=== PATIENT | male | born 1950 | race Caucasian/White ===

== ENCOUNTER 2022-01-16 21:55 | Observation (INO) | payer MEDICARE, OTHER ==
--- NOTE | 2022-01-17 00:18 | ED ---
Altered Mental Status HPI - General Chief Complaint: Altered Mental Status Stated Complaint: Altered Mental Status Time Seen by Provider: 01/16/22 22:05 Source: patient, EMS Mode of arrival: EMS Limitations: no limitations - History of Present Illness Initial Comments: This patient is a 71-year-old man sent [facility] from [facility] to have evaluation for altered mental status. The [facility] notes state that the patient was not able to answer simple questions. When I interview the patient, he does not have any complaints. The patient believes that they tried to wake him up and he wasn't able to answer appropriately. He also states that it is possible he may have had a seizure. He had seizure disorder but states that since he moved to this area from the [facility] he has not had his seizure medication and they do not seem to be addressing the issue rapidly at the [facility]. The patient is denying pains. He denies dyspnea. He states that he would like just like to go back to the home and rest. MD Complaint: altered mental status -: minutes(s) Associated Symptoms: denies other symptoms - Related Data Home Medications Medication Instructions Recorded Confirmed Ammonium Lactate Lotion 1 applic TOPICAL Q12H 01/16/22 01/16/22 [Lac-Hydrin 12% Lotion] Apixaban [Eliquis] 2.5 mg PO BID@0900,209901/16/22 01/16/22 Ascorbic Acid [Vitamin C] 500 mg PO HS@209901/16/22 01/16/22 Cholecalciferol [Vitamin D3 (25 50 mcg PO DAILY@0900 01/16/22 01/16/22 Mcg = 1000 Iu)] Cyanocobalamin [Vitamin B-12 1,000 mcg SQ Q30D 01/16/22 01/16/22 Injection] Lacosamide [Vimpat] 200 mg PO BID@0900,209901/16/22 01/16/22 Metoprolol Succinate (ER) [Toprol 50 mg PO DAILY@0900 01/16/22 01/16/22 Xl] Pravastatin Sodium 80 mg PO HS@209901/16/22 01/16/22 Topiramate [Topamax] 100 mg PO BID@0900,209901/16/22 01/16/22 metFORMIN HCL 500 mg PO BID@0900,1700 01/16/22 01/16/22 Allergies Allergy/AdvReac Type Severity Reaction Status Date / Time No Known Allergies Allergy Verified 01/16/22 23:47 Review of Systems ROS Statement: Those systems with pertinent positive or pertinent negative responses have been documented in the HPI. ROS Other: All systems not noted in ROS Statement are negative. Constitutional: Denies: fever Respiratory: Denies: cough, dyspnea Cardiovascular: Denies: chest pain, orthopnea Gastrointestinal: Denies: abdominal pain, vomiting Musculoskeletal: Denies: back pain Skin: Denies: rash Neurological: Denies: headache Past Medical History Past Medical History: Hypertension History of Any Multi-Drug Resistant Organisms: None Reported Past Surgical History: Unable to Obtain Past Psychological History: No Psychological Hx Reported Smoking Status: Former smoker Past Alcohol Use History: None Reported Past Drug Use History: None Reported General Exam Limitations: no limitations General appearance: alert, in no apparent distress Head exam: Present: atraumatic, normocephalic Eye exam: Present: normal appearance. Absent: scleral icterus, conjunctival injection Neck exam: Present: normal inspection, full ROM Respiratory exam: Present: normal lung sounds bilaterally. Absent: respiratory distress, wheezes, rales, rhonchi, stridor Cardiovascular Exam: Present: regular rate, normal rhythm, normal heart sounds. Absent: systolic murmur, diastolic murmur, rubs, gallop GI/Abdominal exam: Present: soft. Absent: distended, tenderness, guarding, rebound, rigid, mass Extremities exam: Present: normal inspection, normal capillary refill Neurological exam: Present: alert, oriented X3. Absent: motor sensory deficit Skin exam: Present: warm, dry, intact, normal color. Absent: rash Course Vital Signs 01/16/22 01/17/22 01/17/22 21:56 00:56 06:59 Temperature 97.8 F Pulse Rate 51 L 61 57 L Respiratory 18 18 14 Rate Blood Pressure 138/57 138/72 151/77 O2 Sat by Pulse 95 96 99 Oximetry Medical Decision Making - Lab Data Result diagrams: 01/17/22 00:56 01/17/22 00:56 Lab Results 01/17/22 01/17/22 01/17/22 Range/Units 00:56 00:56 00:56 WBC 12.5 H (3.8-10.6) k/uL RBC 4.92 (4.30-5.90) m/uL Hgb 14.7 (13.0-17.5) gm/dL Hct 45.7 (39.0-53.0) % MCV 92.9 (80.0-100.0) fL MCH 29.9 (25.0-35.0) pg MCHC 32.2 (31.0-37.0) g/dL RDW 14.5 (11.5-15.5) % Plt Count 264 (150-450) k/uL MPV 8.3 Neutrophils % 71 % Lymphocytes % 18 % Monocytes % 5 % Eosinophils % 4 % Basophils % 1 % Neutrophils # 8.9 H (1.3-7.7) k/uL Lymphocytes # 2.3 (1.0-4.8) k/uL Monocytes # 0.6 (0-1.0) k/uL Eosinophils # 0.5 (0-0.7) k/uL Basophils # 0.1 (0-0.2) k/uL Sodium 138 (137-145) mmol/L Potassium 4.9 (3.5-5.1) mmol/L Chloride 108 H (98-107) mmol/L Carbon Dioxide 21 L (22-30) mmol/L Anion Gap 9 mmol/L BUN 24 H (9-20) mg/dL Creatinine 0.96 (0.66-1.25) mg/dL Est GFR (CKD-EPI)AfAm >90 (>60 ml/min/1.73 sqM) Est GFR (CKD-EPI)NonAf 80 (>60 ml/min/1.73 sqM) Glucose 239 H (74-99) mg/dL Calcium 9.4 (8.4-10.2) mg/dL Total Bilirubin 0.3 (0.2-1.3) mg/dL AST 40 (17-59) U/L ALT 35 (4-49) U/L Alkaline Phosphatase 99 (38-126) U/L Ammonia (<30) umol/L Troponin I 1.030 H* (0.000-0.034) ng/mL Total Protein 7.7 (6.3-8.2) g/dL Albumin 4.0 (3.5-5.0) g/dL Urine Color Urine Appearance (Clear) Urine pH (5.0-8.0) Ur Specific [place] (1.001-1.035) Urine Protein (Negative) Urine Glucose (UA) (Negative) Urine Ketones (Negative) Urine Blood (Negative) Urine Nitrite (Negative) Urine Bilirubin (Negative) Urine Urobilinogen (<2.0) mg/dL Ur Leukocyte Esterase (Negative) Urine RBC (0-5) /hpf Urine WBC (0-5) /hpf Ur Squamous Epith Cells (0-4) /hpf Urine Bacteria (None) /hpf Urine Mucus (None) /hpf Urine Opiates Screen (NotDetected) Ur Oxycodone Screen (NotDetected) Urine Methadone Screen (NotDetected) Ur Propoxyphene Screen (NotDetected) Ur Barbiturates Screen (NotDetected) U Tricyclic Antidepress (NotDetected) Ur Phencyclidine Scrn (NotDetected) Ur Amphetamines Screen (NotDetected) U Methamphetamines Scrn (NotDetected) U Benzodiazepines Scrn (NotDetected) Urine Cocaine Screen (NotDetected) U Marijuana (THC) Screen (NotDetected) 01/17/22 01/17/22 01/17/22 Range/Units 00:56 02:12 02:12 WBC (3.8-10.6) k/uL RBC (4.30-5.90) m/uL Hgb (13.0-17.5) gm/dL Hct (39.0-53.0) % MCV (80.0-100.0) fL MCH (25.0-35.0) pg MCHC (31.0-37.0) g/dL RDW (11.5-15.5) % Plt Count (150-450) k/uL MPV Neutrophils % % Lymphocytes % % Monocytes % % Eosinophils % % Basophils % % Neutrophils # (1.3-7.7) k/uL Lymphocytes # (1.0-4.8) k/uL Monocytes # (0-1.0) k/uL Eosinophils # (0-0.7) k/uL Basophils # (0-0.2) k/uL Sodium (137-145) mmol/L Potassium (3.5-5.1) mmol/L Chloride (98-107) mmol/L Carbon Dioxide (22-30) mmol/L Anion Gap mmol/L BUN (9-20) mg/dL Creatinine (0.66-1.25) mg/dL Est GFR (CKD-EPI)AfAm (>60 ml/min/1.73 sqM) Est GFR (CKD-EPI)NonAf (>60 ml/min/1.73 sqM) Glucose (74-99) mg/dL Calcium (8.4-10.2) mg/dL Total Bilirubin (0.2-1.3) mg/dL AST (17-59) U/L ALT (4-49) U/L Alkaline Phosphatase (38-126) U/L Ammonia <9 (<30) umol/L Troponin I (0.000-0.034) ng/mL Total Protein (6.3-8.2) g/dL Albumin (3.5-5.0) g/dL Urine Color Yellow Urine Appearance Cloudy (Clear) Urine pH 6.5 (5.0-8.0) Ur Specific [place] 1.018 (1.001-1.035) Urine Protein Negative (Negative) Urine Glucose (UA) Negative (Negative) Urine Ketones Negative (Negative) Urine Blood Negative (Negative) Urine Nitrite Negative (Negative) Urine Bilirubin Negative (Negative) Urine Urobilinogen 2.0 (<2.0) mg/dL Ur Leukocyte Esterase Small H (Negative) Urine RBC 1 (0-5) /hpf Urine WBC 2 (0-5) /hpf Ur Squamous Epith Cells <1 (0-4) /hpf Urine Bacteria Rare H (None) /hpf Urine Mucus Rare H (None) /hpf Urine Opiates Screen Not Detected (NotDetected) Ur Oxycodone Screen Not Detected (NotDetected) Urine Methadone Screen Not Detected (NotDetected) Ur Propoxyphene Screen Not Detected (NotDetected) Ur Barbiturates Screen Not Detected (NotDetected) U Tricyclic Antidepress Not Detected (NotDetected) Ur Phencyclidine Scrn Not Detected (NotDetected) Ur Amphetamines Screen Not Detected (NotDetected) U Methamphetamines Scrn Not Detected (NotDetected) U Benzodiazepines Scrn Not Detected (NotDetected) Urine Cocaine Screen Not Detected (NotDetected) U Marijuana (THC) Screen Not Detected (NotDetected) 01/17/22 Range/Units 04:01 WBC (3.8-10.6) k/uL RBC (4.30-5.90) m/uL Hgb (13.0-17.5) gm/dL Hct (39.0-53.0) % MCV (80.0-100.0) fL MCH (25.0-35.0) pg MCHC (31.0-37.0) g/dL RDW (11.5-15.5) % Plt Count (150-450) k/uL MPV Neutrophils % % Lymphocytes % % Monocytes % % Eosinophils % % Basophils % % Neutrophils # (1.3-7.7) k/uL Lymphocytes # (1.0-4.8) k/uL Monocytes # (0-1.0) k/uL Eosinophils # (0-0.7) k/uL Basophils # (0-0.2) k/uL Sodium (137-145) mmol/L Potassium (3.5-5.1) mmol/L Chloride (98-107) mmol/L Carbon Dioxide (22-30) mmol/L Anion Gap mmol/L BUN (9-20) mg/dL Creatinine (0.66-1.25) mg/dL Est GFR (CKD-EPI)AfAm (>60 ml/min/1.73 sqM) Est GFR (CKD-EPI)NonAf (>60 ml/min/1.73 sqM) Glucose (74-99) mg/dL Calcium (8.4-10.2) mg/dL Total Bilirubin (0.2-1.3) mg/dL AST (17-59) U/L ALT (4-49) U/L Alkaline Phosphatase (38-126) U/L Ammonia (<30) umol/L Troponin I 0.842 H* (0.000-0.034) ng/mL Total Protein (6.3-8.2) g/dL Albumin (3.5-5.0) g/dL Urine Color Urine Appearance (Clear) Urine pH (5.0-8.0) Ur Specific [place] (1.001-1.035) Urine Protein (Negative) Urine Glucose (UA) (Negative) Urine Ketones (Negative) Urine Blood (Negative) Urine Nitrite (Negative) Urine Bilirubin (Negative) Urine Urobilinogen (<2.0) mg/dL Ur Leukocyte Esterase (Negative) Urine RBC (0-5) /hpf Urine WBC (0-5) /hpf Ur Squamous Epith Cells (0-4) /hpf Urine Bacteria (None) /hpf Urine Mucus (None) /hpf Urine Opiates Screen (NotDetected) Ur Oxycodone Screen (NotDetected) Urine Methadone Screen (NotDetected) Ur Propoxyphene Screen (NotDetected) Ur Barbiturates Screen (NotDetected) U Tricyclic Antidepress (NotDetected) Ur Phencyclidine Scrn (NotDetected) Ur Amphetamines Screen (NotDetected) U Methamphetamines Scrn (NotDetected) U Benzodiazepines Scrn (NotDetected) Urine Cocaine Screen (NotDetected) U Marijuana (THC) Screen (NotDetected) Disposition Clinical Impression: Altered mental status, Elevated troponin Disposition: ADMITTED IP TO THIS [facility] Condition: Good Is patient prescribed a controlled substance at d/c from ED?: No
--- NOTE | 2022-01-17 00:20 | XR ---
EXAMINATION TYPE: XR chest 1V portable DATE OF EXAM: 01/17/2022 COMPARISON: NONE HISTORY: Altered mental status TECHNIQUE: Single view FINDINGS: There are sternal wires. There is left axillary pacemaker. There is mild coarsening of the left lung markings. No obvious heart failure. No pleural effusion. IMPRESSION: There is some mild coarsening of the left side pulmonary interstitial markings. No heart failure or pulmonary consolidation.
[2022-01-17 01:15] LABS: Basophils # (A) 0.1 k/uL (0-0.2); Basophils % (A) 1 %; Eosinophils # (A) 0.5 k/uL (0-0.7); Eosinophils % (A) 4 %; HCT 45.7 % (39.0-53.0); HGB 14.7 gm/dL (13.0-17.5); Lymphocytes # (A) 2.3 k/uL (1.0-4.8); Lymphocytes % (A) 18 %; MCH 29.9 pg (25.0-35.0); MCHC 32.2 g/dL (31.0-37.0); MCV 92.9 fL (80.0-100.0); Mean Platelet Volume 8.3; Monocytes # (A) 0.6 k/uL (0-1.0); Monocytes % (A) 5 %; Neutrophils # (A) 8.9 k/uL (1.3-7.7); Neutrophils % (A) 71 %; Platelet Count 264 k/uL (150-450); RBC 4.92 m/uL (4.30-5.90); RDW 14.5 % (11.5-15.5); WBC 12.5 k/uL (3.8-10.6)
[2022-01-17 01:39] LABS: ALT 35 U/L (4-49); African American GFR (CKD) >90 (>60 ml/min/1.73 sqM); Anion Gap 9 mmol/L; Blood Urea Nitrogen 24 mg/dL (9-20); Calcium 9.4 mg/dL (8.4-10.2); Carbon Dioxide 21 mmol/L (22-30); Chloride 108 mmol/L (98-107); Glucose 239 mg/dL (74-99); Non-African American GFR(CKD) 80 (>60 ml/min/1.73 sqM); Sodium 138 mmol/L (137-145); Total Bilirubin 0.3 mg/dL (0.2-1.3); Total Protein 7.7 g/dL (6.3-8.2)
[2022-01-17 01:59] LABS: AST 40 U/L (17-59); Alkaline Phosphatase 99 U/L (38-126); Potassium 4.9 mmol/L (3.5-5.1)
[2022-01-17 02:43] LABS: Amphetamine Screen,Urine Not Detected (NotDetected); Barbiturate Screen,Urine Not Detected (NotDetected); Benzodiazepines Screen,Urine Not Detected (NotDetected); Cocaine Screen,Urine Not Detected (NotDetected); Methadone Screen, Urine Not Detected (NotDetected); Opiate Screen,Urine Not Detected (NotDetected); Oxycodone Screen, Urine Not Detected (NotDetected); Phencyclidine Screen,Urine Not Detected (NotDetected); Tricyclic Antidepressant,Urine Not Detected (NotDetected); Urn Cannabinoid Scrn Not Detected (NotDetected)
[2022-01-17 05:13] LABS: Appearance,Urine Cloudy (Clear); Bacteria,Urine Rare /hpf; Bilirubin,Urine Negative (Negative); Blood,Urine Negative (Negative); Color,Urine Yellow; Glucose,Urine (UA) Negative (Negative); Ketones,Urine Negative (Negative); Leukocyte Esterase,Urine Small (Negative); Mucus,Urine Rare /hpf; Nitrite,Urine Negative (Negative); PH, Urine 6.5 (5.0-8.0); Protein,Urine Negative (Negative); RBC,Urine 1 /hpf (0-5); Specific Gravity,Urine 1.018 (1.001-1.035); Squamous Epithelial Cell,Urine <1 /hpf (0-4); WBC,Urine 2 /hpf (0-5)
[2022-01-17] MEDS ORDERED: NITROGLYCERIN SL TABS 0.4 MG TAB SUBLINGUAL PRN (06:35)
[2022-01-17] MEDS ORDERED: metFORMIN 500 MG TAB PO SCH (09:00)
[2022-01-17 11:47] LABS: Glucose,Whole Blood 284 mg/dL (70-110)
[2022-01-17] MEDS: APIXABAN 2.5 MG TABLET PO SCH ×2 (12:31→21:11)
[2022-01-17] MEDS: CHOLECALCIFEROL 25 MCG (1000 IU) TABLET PO SCH (12:31)
[2022-01-17] MEDS: LACOSAMIDE 50 MG TABLET PO SCH ×2 (12:31→21:10)
[2022-01-17] MEDS: METOPROLOL SUCCINATE (ER) 50 MG TAB.ER.24H PO SCH (12:32)
[2022-01-17] MEDS: TOPIRAMATE 100 MG TAB PO SCH ×2 (12:32→21:11)
[2022-01-17 16:50] LABS: Glucose,Whole Blood 188 mg/dL (70-110)
--- NOTE | 2022-01-17 17:38 | CONS ---
BENNY Bullard is a 71-year-old gentleman who is currently a resident of a alf, brought into hospital primarily because he was mildly confused. He had troponins done that came back elevated, for which he is admitted to hospital and Cardiology had been consulted. The patient does not have chest pain or difficulty in breathing and does not really have any other symptoms. His EKG shows paced rhythm with left bundle branch block. He still appears mildly confused. PAST MEDICAL HISTORY: Significant for atrial fibrillation, dyslipidemia, hypertension, [id number] diabetes and prior history of pacemaker. MEDICATIONS: Medications include metformin, Eliquis, Toprol-XL, vitamin C and ammonium lactate. ALLERGIES: NO KNOWN DRUG ALLERGIES. Family history, social history, review of systems I am unable to obtain from the patient, who is still pleasantly confused. PHYSICAL EXAMINATION: On exam, heart rate is 50 beats per minute. Blood pressure is 157/70, respiratory rate 18, O2 saturation is 99% on room air. There is no jugular venous distention. Carotid upstroke is diminished. There is no bruit. Chest exam reveals good air entry bilaterally. Heart exam reveals first and second heart sounds and a systolic murmur at the apex. Abdomen is soft. Examination of extremities reveals mild edema. Peripheral pulses are felt. ASSESSMENT: Elevated troponin of unclear clinical significance in a patient who does not have chest pain and does not seem to be in heart failure. I will obtain a 2D echo to assess his LV function and wall motion, treat him with continued medical therapy, and when his symptoms improve, if necessary consider a stress test. We certainly need to review his outpatient records, as I am not able to get much information from him. MMODL / IJN: [id number] /
[2022-01-17] MEDS: INSULIN ASPART (NovoLOG) 100 UNIT/ML VIAL SQ SCH ×2 (18:37→21:12)
[2022-01-17 20:30] LABS: Glucose,Whole Blood 160 mg/dL (70-110)
[2022-01-17] MEDS: PRAVASTATIN SODIUM 80 MG TAB PO SCH (21:10)
[2022-01-17] MEDS: ASCORBIC ACID 500 MG TAB PO SCH (21:11)
--- NOTE | 2022-01-17 21:27 | P.HPIM ---
History of Present Illness H&P Date: 01/17/22 Chief Complaint: Altered mental status. 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 According to the nursing staff patient was not able to answer simple questions. Patient was transferred to ER and also suspected having a seizure. No witnessed seizure was noted. Currently patient is awake alert oriented x3 and is able to answer appro priately. Patient states that he moved to this area from [place], from [place]. Otherwise denied any chest pain or shortness of breath. No nausea vomiting abdomen pain or diarrhea. Denied any recent illnesses. No fever no chills. Denied any cough or sputum production. No abdominal pain. No dysuria or hematuria. Chest x-ray showed there is some mild coarsening of the left side pulmonary interstitial markings. No heart failure or pulmonary consolidation noted. EKG showed ventricular paced rhythm. Laboratory data showed WBC 12.4 hemoglobin 14.7 platelets 264 Sodium 138 potassium 4.9 chloride 108 bicarb is 21 BUN 24 and creatinine 0.96 and blood sugar is 239 and troponin 1.030, 0.842 and 0.613 and 0.493. Ammonia less than 911 years are not elevated urinalysis is negative for infection UDS is negative. Review of Systems Constitutional: Patient denies any fever or chills . Generalized weakness. Abdomen: Patient denied any nausea or vomiting or abd. pain Cardiovascular: Patient denies any chest pain or short of breath no palpitations. Respiratory: patient denied any cough is from production. No shortness of breath Neurologic: Patient denied any numbness or tingling headache. Musculoskeletal: Patient denies any complaints of joint swelling or deformity. Skin: Negative Psychiatric: Negative Endocrine: No heat or cold intolerance. No recent weight gain. Genitourinary: No dysuria or hematuria. All other 14 point ROS negative except the above Past Medical History Past Medical History: Hypertension History of Any Multi-Drug Resistant Organisms: None Reported Past Surgical History: Unable to Obtain Past Psychological History: No Psychological Hx Reported Smoking Status: Former smoker Past Alcohol Use History: None Reported Past Drug Use History: None Reported - Past Family History Father Family Medical History: Unable to Obtain Mother Family Medical History: Unable to Obtain Medications and Allergies Home Medications Medication Instructions Recorded Confirmed Type Ammonium Lactate Lotion 1 applic TOPICAL Q12H 01/16/22 01/16/22 History [Lac-Hydrin 12% Lotion] Apixaban [Eliquis] 2.5 mg PO BID@0900,2100 01/16/22 01/16/22 History Ascorbic Acid [Vitamin C] 500 mg PO HS@209901/16/22 01/16/22 History Cholecalciferol [Vitamin D3 (25 50 mcg PO DAILY@0900 01/16/22 01/16/22 History Mcg = 1000 Iu)] Cyanocobalamin [Vitamin B-12 1,000 mcg SQ Q30D 01/16/22 01/16/22 History Injection] Lacosamide [Vimpat] 200 mg PO BID@0900,209901/16/22 01/16/22 History Metoprolol Succinate (ER) [Toprol 50 mg PO DAILY@0900 01/16/22 01/16/22 History Xl] Pravastatin Sodium 80 mg PO HS@209901/16/22 01/16/22 History Topiramate [Topamax] 100 mg PO BID@0900,2100 01/16/22 01/16/22 History metFORMIN HCL 500 mg PO BID@0900,1700 01/16/22 01/16/22 History Allergies Allergy/AdvReac Type Severity Reaction Status Date / Time No Known Allergies Allergy Verified 01/16/22 23:47 Physical Exam Vitals: Vital Signs Temp Pulse Resp BP Pulse Ox 01/17/22 06:59 57 L 14 151/77 99 01/17/22 00:56 61 18 138/72 96 01/16/22 21:56 97.8 F 51 L 18 138/57 95 Intake and Output 01/16/22 01/17/22 01/17/22 22:59 06:59 14:59 Other: Weight 127.006 kg PHYSICAL EXAMINATION: Patient is lying in the bed comfortably, no acute distress, awake alert and oriented and able to answer simple questions... HEENT: Normocephalic. Neck is supple. Pupils reactive. Nostrils clear. Oral cavity is moist. Neck reveals no JVD, carotid bruits, or thyromegaly. CHEST EXAMINATION: Trachea is central. Symmetrical expansion. Lung rosa clear to auscultation and percussion. CARDIAC: Normal S1, S2 with no gallops. No murmurs ABDOMEN: Soft. Bowel sounds present. Nontender. No organomegaly. No abdominal bruits. Extremities: Trace bilateral pedal edema. Patient does have history of chronic gangrenous changes in the toes. No cyanosis. Neurologically awake, alert, oriented x3. Able to move extremities while in bed. No gross focal neurological deficit. Skin: No rash or skin lesions. Psychiatric: Coperative. Nonsuicidal.. Musculoskeletal: No joint swelling or deformity. Results CBC & Chem 7: 01/17/22 00:56 01/17/22 00:56 Labs: Abnormal Lab Results - Last 24 Hours (Table) 01/17/22 01/17/22 01/17/22 Range/Units 00:56 00:56 00:56 WBC 12.5 H (3.8-10.6) k/uL Neutrophils # 8.9 H (1.3-7.7) k/uL Chloride 108 H (98-107) mmol/L Carbon Dioxide 21 L (22-30) mmol/L BUN 24 H (9-20) mg/dL Glucose 239 H (74-99) mg/dL POC Glucose (mg/dL) (70-110) mg/dL Troponin I 1.030 H* (0.000-0.034) ng/mL Ur Leukocyte Esterase (Negative) Urine Bacteria (None) /hpf Urine Mucus (None) /hpf 01/17/22 01/17/22 01/17/22 Range/Units 02:12 04:01 08:16 WBC (3.8-10.6) k/uL Neutrophils # (1.3-7.7) k/uL Chloride (98-107) mmol/L Carbon Dioxide (22-30) mmol/L BUN (9-20) mg/dL Glucose (74-99) mg/dL POC Glucose (mg/dL) (70-110) mg/dL Troponin I 0.842 H* 0.613 H* (0.000-0.034) ng/mL Ur Leukocyte Esterase Small H (Negative) Urine Bacteria Rare H (None) /hpf Urine Mucus Rare H (None) /hpf 01/17/22 01/17/22 Range/Units 11:29 11:45 WBC (3.8-10.6) k/uL Neutrophils # (1.3-7.7) k/uL Chloride (98-107) mmol/L Carbon Dioxide (22-30) mmol/L BUN (9-20) mg/dL Glucose (74-99) mg/dL POC Glucose (mg/dL) 284 H (70-110) mg/dL Troponin I 0.493 H* (0.000-0.034) ng/mL Ur Leukocyte Esterase (Negative) Urine Bacteria (None) /hpf Urine Mucus (None) /hpf Assessment and Plan Assessment: Altered mental status. Etiology not known at this time. Resolved now and patient is back to baseline. Elevated troponin level unlikely ACS. Paroxysmal atrial fibrillation on anticoagulation with Eliquis Hypertension Diabetes type 2 [id number] Hypokalemia Seizure disorder. Currently on Vimpat and Topamax. DVT prophylaxis. Patient will be current telemetry monitoring. Continue with aspirin, statins and metoprolol and anticoagulation with Eliquis. Continue with home medications including Topamax and Vimpat. Cardiology was consulted for elevated troponin levels. 2D echocardiogram was ordered and follow-up closely. Continue with insulin sliding scale and anticipate [facility] back to [facility] soon. Time with Patient: Greater than 30
[2022-01-18] MEDS ORDERED: LORazepam 1 MG/0.5 ML VIAL IV PRN (05:00)
--- NOTE | 2022-01-18 05:03 | CT ---
EXAMINATION TYPE: CT brain wo con DATE OF EXAM: 01/18/2022 COMPARISON: None HISTORY: unresponsive episode CT DLP: 1131.4 mGycm Automated exposure control for dose reduction was used. There is cerebral cortical atrophy. There is no mass effect or midline shift. There is some enlargeme nt of the frontal horns of the lateral ventricles. There is no evidence of intracranial hemorrhage. C alvarium is intact. IMPRESSION: Cerebral atrophy and more noticeable in the frontal lobes. No acute intracranial abnormality.
[2022-01-18 06:28] LABS: Glucose,Whole Blood 161 mg/dL (70-110)
[2022-01-18] MEDS: INSULIN ASPART (NovoLOG) 100 UNIT/ML VIAL SQ SCH ×4 (06:30→20:40)
[2022-01-18 07:32] LABS: Basophils # (A) 0.1 k/uL (0-0.2); Basophils % (A) 1 %; Eosinophils # (A) 0.4 k/uL (0-0.7); Eosinophils % (A) 3 %; Hypochromasia Slight; Lymphocytes # (A) 1.9 k/uL (1.0-4.8); Lymphocytes % (A) 16 %; MCH 29.1 pg (25.0-35.0); MCHC 31.2 g/dL (31.0-37.0); MCV 93.3 fL (80.0-100.0); Monocytes # (A) 0.7 k/uL (0-1.0); Monocytes % (A) 5 %; Neutrophils % (A) 74 %; Platelet Count 239 k/uL (150-450); RBC 4.82 m/uL (4.30-5.90); RDW 14.5 % (11.5-15.5); WBC 12.2 k/uL (3.8-10.6)
[2022-01-18 07:49] LABS: African American GFR (CKD) 82 (>60 ml/min/1.73 sqM); Anion Gap 9 mmol/L; Blood Urea Nitrogen 24 mg/dL (9-20); Calcium 8.8 mg/dL (8.4-10.2); Carbon Dioxide 20 mmol/L (22-30); Chloride 110 mmol/L (98-107); Glucose 165 mg/dL (74-99); Non-African American GFR(CKD) 71 (>60 ml/min/1.73 sqM); Potassium 4.8 mmol/L (3.5-5.1); Sodium 139 mmol/L (137-145)
[2022-01-18] MEDS: LACOSAMIDE 50 MG TABLET PO SCH ×2 (09:37→20:39)
[2022-01-18] MEDS: CHOLECALCIFEROL 25 MCG (1000 IU) TABLET PO SCH (09:37)
[2022-01-18] MEDS: TOPIRAMATE 100 MG TAB PO SCH ×2 (09:37→20:40)
[2022-01-18] MEDS: METOPROLOL SUCCINATE (ER) 50 MG TAB.ER.24H PO SCH (09:37)
[2022-01-18] MEDS: APIXABAN 2.5 MG TABLET PO SCH ×2 (09:37→20:40)
[2022-01-18] MEDS: ASPIRIN 325 MG TAB PO SCH (09:37)
[2022-01-18 11:11] LABS: Chol/HDL Ratio 4.14 Ratio; LDL Cholesterol,Calculated 50.9 mg/dL (0.0-131.0)
--- NOTE | 2022-01-18 11:29 | P.CNNES ---
History of Present Illness Consult date: 01/18/22 Requesting physician: Oleg Reese Reason for Consult: possible seizure History of Present Illness: This is a 71-year-old gentleman with a history of seizure, stroke, atrial fibrillation on eliquis, PAD, hypertension who presented from his long term for altered mental status. It seems that the patient possibly may had a seizure at his long term. She is a poor historian but he stated he is been having seizures for at least 5 years possibly. He was notified by the nursing facility that he had a seizure and that's what brought him to the hospital but he could not tell me the what symptoms he had prior to the seizure. He thinks his seizures has been more frequent. He denies any warning signs prior to episode that. Patient is at a new nursing facility and I'm not sure if the patient is getting his seizure medications. Patient is on Topamax 100 mg 1 tablet twice a day, Vimpat 200 mg 1 tablet twice a day. Per the nurse overnight nurse felt the patient had a seizure-like activity in which is gaze with looking up to the right and had a flex posture of upper and episode lasted less than 2 minutes then was post ictal for 20 minutes. He stated that he was followed up with a neurologist as an outpatient in [place], [place] but could not remember his name. He stated he had multiple MRI Brain in past. He denies history of stroke but according to nurse it seems he has old stroke in past. He is bed bound. Some of the workup in our facility during this hospital visit consisted of: She has been afebrile during this hospital visit. Initial white blood cell is 12.5 thousand and slightly neutrophilic repeated is 12.2 thousand Initial serum glucose is 239 chloride is 108, carbon dioxide 21. Troponin on initial presentation is 1.030 and is trending down ammonia level is less than 9. Otherwise rest of the chemistry panel is unremarkable Urine drug screen is not effected CT of the head is reported as cerebral atrophy and more noticeable in the frontal lobe. No acute intracranial abnormality. I personally reviewed the CT head and I do not see any acute subacute ischemia. The patient does have encephalomalacia over the left parietal region. It seems the patient has dilated ventricle throughout but mostly over the anterior/frontal horn of lateral ventricles. His dilated ventricles seems questionable he suspicious for NPH. Review of Systems Review of system: The 12 point system was reviewed and apparent positive and negative per HPI. Past Medical History Past Medical History: Hypertension History of Any Multi-Drug Resistant Organisms: None Reported Past Surgical History: Unable to Obtain Past Anesthesia/Blood Transfusion Reactions: No Reported Reaction Past Psychological History: No Psychological Hx Reported Smoking Status: Former smoker Past Alcohol Use History: None Reported Past Drug Use History: None Reported - Past Family History Father Family Medical History: Unable to Obtain Mother Family Medical History: Unable to Obtain Medications and Allergies Home Medications Medication Instructions Recorded Confirmed Type Ammonium Lactate Lotion 1 applic TOPICAL Q12H 01/16/22 01/16/22 History [Lac-Hydrin 12% Lotion] Apixaban [Eliquis] 2.5 mg PO BID@0900,209901/16/22 01/16/22 History Ascorbic Acid [Vitamin C] 500 mg PO HS@209901/16/22 01/16/22 History Cholecalciferol [Vitamin D3 (25 50 mcg PO DAILY@0900 01/16/22 01/16/22 History Mcg = 1000 Iu)] Cyanocobalamin [Vitamin B-12 1,000 mcg SQ Q30D 01/16/22 01/16/22 History Injection] Lacosamide [Vimpat] 200 mg PO BID@0900,209901/16/22 01/16/22 History Metoprolol Succinate (ER) [Toprol 50 mg PO DAILY@0900 01/16/22 01/16/22 History Xl] Pravastatin Sodium 80 mg PO HS@209901/16/22 01/16/22 History Topiramate [Topamax] 100 mg PO BID@0900,209901/16/22 01/16/22 History metFORMIN HCL 500 mg PO BID@0900,1700 01/16/22 01/16/22 History Allergies Allergy/AdvReac Type Severity Reaction Status Date / Time No Known Allergies Allergy Verified 01/16/22 23:47 Physical Examination - Vital Signs Vital Signs: Vital Signs Temp Pulse Resp BP Pulse Ox 01/18/22 04:00 103 H 14 156/69 95 01/17/22 23:49 98.1 F 53 L 12 113/64 94 L 01/17/22 20:00 97.8 F 54 L 12 127/77 97 01/17/22 16:10 98.0 F 60 16 137/71 96 01/17/22 11:20 97.6 F 63 16 125/68 98 Intake and Output 01/17/22 01/18/22 01/18/22 22:59 06:59 14:59 Output Total 200 700 Balance -200 -700 Output: Urine 200 700 Other: Voiding Method Diaper Diaper External Catheter External Catheter # Bowel Movements 0 GENERAL: The patient is lying in bed and is not in acute distress. CHEST: The heart rate is regular rate rhythm. No murmurs to auscultation. LUNG: Clear to auscultation bilaterally no wheezing noted throughout. Not labored breathing. ABDOMEN/GI: Bowel sounds present in all 4 quadrants. No tenderness to palpation throughout. MUSCULOSKELETAL: Has shinny appearance of his hands with arthritis changes (right > left), having flexed/extension of distal fingers of hand. NEUROLOGICAL: Higher mental function: The patient is awake, alert, oriented to self, place and time. Patient is following simple commands. No aphasia and no neglect. Cranial nerves: The pupils are round, equal and reactive to light. Visual rosa are full to confrontation throughout. Extraocular movement is intact no nystagmus is noted. Facial sensation is normal to touch throughout. The facial strength is normal throughout. Hearing is normal bilaterally to hand rub. Tongue is midline and moved [id number] without any difficulty. No dysarthria is noted. Shoulder shrug is normal bilaterally. Motor: The strength is has increased tone of distal digitis of both hand (right > left) and has arthritis change. But proximal uppers are 5/5. Distal hands is able to make fist. Lowers is able to lift above gravity proximally symetrically but limited in lowers because of pain. 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 Appearance of gangrenous over the dorsal aspect of left foot. Sensation: Sensation is normal to touch throughout. Reflexes (right/left): Left patellar is 3+. Otherwise uppers are 2+. Lowers are 1+ bilaterally. Plantars is right toe is amputated while left is mute. Results - Laboratory Findings CBC and BMP: 01/18/22 06:57 01/18/22 06:57 Abnormal Lab Findings: Abnormal Labs 01/17/22 01/17/22 01/17/22 00:56 00:56 00:56 WBC 12.5 H Neutrophils # 8.9 H Chloride 108 H Carbon Dioxide 21 L BUN 24 H Glucose 239 H POC Glucose (mg/dL) Troponin I 1.030 H* Ur Leukocyte Esterase Urine Bacteria Urine Mucus 01/17/22 01/17/22 01/17/22 02:12 04:01 08:16 WBC Neutrophils # Chloride Carbon Dioxide BUN Glucose POC Glucose (mg/dL) Troponin I 0.842 H* 0.613 H* Ur Leukocyte Esterase Small H Urine Bacteria Rare H Urine Mucus Rare H 01/17/22 01/17/22 01/17/22 11:29 11:45 16:49 WBC Neutrophils # Chloride Carbon Dioxide BUN Glucose POC Glucose (mg/dL) 284 H 188 H Troponin I 0.493 H* Ur Leukocyte Esterase Urine Bacteria Urine Mucus 01/17/22 01/18/22 01/18/22 20:16 06:16 06:57 WBC Neutrophils # Chloride 110 H Carbon Dioxide 20 L BUN 24 H Glucose 165 H POC Glucose (mg/dL) 160 H 161 H Troponin I Ur Leukocyte Esterase Urine Bacteria Urine Mucus 01/18/22 06:57 WBC 12.2 H Neutrophils # 9.0 H Chloride Carbon Dioxide BUN Glucose POC Glucose (mg/dL) Troponin I Ur Leukocyte Esterase Urine Bacteria Urine Mucus Assessment and Plan Assessment: Breakthrough seizure. He is at new nursing facility and not sure if he has been receiving his home antiepileptic drugs. History of seizures Elevated troponin is trending down Left parietal encephalomalacia on the CAT scan of the head seems due to likely old stroke Likely cognitive impalement/dementia History of Peripheral arterial disease History of atrial fibrillation on Eliquis Hypertension Plan: I ordered a routine EEG which will be done likely tomorrow (techs are not available today) since it is a routine. Patient Vimpat 200 mg 1 tablet twice a day, Topamax 100 mg 1 tablet twice a day are resumed. I will increase his Topamax to 150mg bid. I ordered MRI of the brain with and without Ordered TSH level, vitamin B12, folate level. On Ativan 1mg every 6 hours PRN for seizures. Placed on seizure precautions seizure Every 4 hours neuro checks Patient is on home medication of eliquis 2.5mg bid. Was started on ASA 325mg daily. Cardiology is consulted We'll defer the rest of the medical management to primary team The plan discussed with the patient's nurse. Thank you for consultation. Dr. Miller will start neurology service tomorrow Melissa Barbosa M.D. Neuro-hospitalist Time with Patient: Greater than 30
--- NOTE | 2022-01-18 11:30 | CA ---
Transthoracic Echo Report Name: Juan Miguel Hargrove Age: 71 Gender: M : 1950 Exam Date: 01/17/2022 14:15 Exam Location: [facility] Ht (in): 73 Wt (lb): 280 Ordering Physician: Kenneth Morales MD ([id number]) Attending/Referring Phys: Carmen OCONNELL Emissions Technician Suzette Granados RDCS Procedure CPT: Indications: LV function Cardiac Hx: Technical Quality: Technically difficult study Contrast 1: Lumason Total Dose (mL): 4 Contrast 2: Total Dose (mL): MEASUREMENTS (Male / Female) Normal Values 2D ECHO LV Diastolic Diameter PLAX 6.2 cm 4.2 - 5.9 / 3.9 - 5.3 cm LV Systolic Diameter PLAX 4.0 cm IVS Diastolic Thickness 1.6 cm 0.6 - 1.0 / 0.6 - 0.9 cm LVPW Diastolic Thickness 1.6 cm 0.6 - 1.0 / 0.6 - 0.9 cm LV Relative Wall Thickness 0.5 RV Internal Dim ED PLAX 3.8 cm LA Volume 74.9 cm??? 18 - 58 / 22 - 52 cm??? M-MODE Aortic Root Diameter MM 3.3 cm LA Systolic Diameter MM 4.8 cm LA Ao Ratio MM 1.5 AV Cusp Separation MM 1.4 cm DOPPLER AV Peak Velocity 262.8 cm/s AV Peak Gradient 27.6 mmHg AV Mean Velocity 170.8 cm/s AV Mean Gradient 13.8 mmHg AV Velocity Time Integral 42.2 cm AI Peak Velocity 427.9 cm/s AI Peak Gradient 73.2 mmHg AI Pressure Half Time 675.9 ms LVOT Peak Velocity 85.9 cm/s LVOT Peak Gradient 3.0 mmHg MV Area PHT 4.6 cm??? Mitral E Point Velocity 114.2 cm/s Mitral A Point Velocity 69.1 cm/s Mitral E to A Ratio 1.7 MV Deceleration Time 164.2 ms TR Peak Velocity 247.0 cm/s TR Peak Gradient 24.4 mmHg Right Ventricular Systolic Press 28.8 mmHg FINDINGS Left Ventricle Moderately increased left ventricular wall thickness. Moderately reduced global left ventricular systolic function. Left ventricular ejection fraction is estimated at 30-35 %. Right Ventricle Moderate right ventricular dilatation. Right Atrium Right atrium not well visualized. Left Atrium Moderately increased left atrial volume. Mitral Valve Moderate mitral regurgitation. Aortic Valve Mild aortic stenosis with a peak gradient of 28 mmHg and a mean gradient of 14 mmHg. Mild aortic regurgitation. Tricuspid Valve Mild tricuspid regurgitation. Pulmonic Valve Trace pulmonic regurgitation. Pericardium No pericardial effusion. Aorta Normal size aortic root and proximal ascending aorta. CONCLUSIONS Moderate to severe diffuse global hypokinesis with moderate to severe LV dysfunction with an ejection fraction of 30-35%. Mild aortic stenosis. Moderate mitral regurgitation Previewed by: Dr. Kenneth Morales MD (Electronically Signed) Final Date: 18 January 2022 11:29
[2022-01-18 11:53] LABS: Glucose,Whole Blood 172 mg/dL (70-110)
[2022-01-18] MEDS: TOPIRAMATE 25 MG TAB PO SCH ×2 (12:58→20:40)
--- NOTE | 2022-01-18 14:22 | PN ---
PROGRESS NOTE Juan Miguel is a 71-year-old gentleman who is admitted to the hospital from a senior living primarily because of confusion and had mild troponin elevation. This morning he is free of cardiac symptoms. Heart rate is around 70 beats per minute. Blood pressure is 156/69, respiratory rate is 18. Chest exam reveals diminished air entry at the bases. Heart exam reveals first and second heart sounds. Ejection systolic murmur in the aortic area. Examination of extremities reveals mild edema. Peripheral pulses are felt. Labs show potassium of 4.8, creatinine is 1. Hemoglobin is 14. ASSESSMENT AND PLAN: Elevated troponin of unclear clinical significance. PLAN: Patient will undergo an echocardiogram. MMODL / IJN: [id number] /
[2022-01-18 16:34] LABS: Glucose,Whole Blood 169 mg/dL (70-110)
[2022-01-18 20:13] LABS: Glucose,Whole Blood 179 mg/dL (70-110)
[2022-01-18] MEDS: PRAVASTATIN SODIUM 80 MG TAB PO SCH (20:39)
[2022-01-18] MEDS: ASCORBIC ACID 500 MG TAB PO SCH (20:40)
--- NOTE | 2022-01-18 22:41 | P.PN ---
Subjective Progress Note Date: 01/18/22 Patient is a 71-year-old male with a known history of hypertension, hyperlipidemia, diabetes type 2 [id number], atrial fibrillation on anticoagulation with Eliquis and generalized medical debility, seizure disorder on AEDs and history of amputation of the toes and chronic gangrenous changes who is currently at [facility] was sent to ER due to altered mental status. According to the nursing staff patient was not able to answer simple questions. Patient was transferred to ER and also suspected having a seizure. No witnessed seizure was noted. Currently patient is awake alert oriented x3 and is able to answer appropriately. Patient states that he moved to this area from [place], from [place]. Otherwise denied any chest pain or shortness of breath. No nausea vomiting abdomen pain or diarrhea. Denied any recent illnesses. No fever no chills. Denied any cough or sputum production. No abdominal pain. No dysuria or hematuria. Chest x-ray showed there is some mild coarsening of the left side pulmonary interstitial markings. No heart failure or pulmonary consolidation noted. EKG showed ventricular paced rhythm. Laboratory data showed WBC 12.4 hemoglobin 14.7 platelets 264 Sodium 138 potassium 4.9 chloride 108 bicarb is 21 BUN 24 and creatinine 0.96 and blood sugar is 239 and troponin 1.030, 0.842 and 0.613 and 0.493. Ammonia less than 911 years are not elevated urinalysis is negative for infection UDS is negative. 01/18/2022 Patient is lying in the bed. Awake alert and oriented and able to answer simple questions. No complaints of chest pain or shortness of breath. Patient is on room air and saturating at 96% this morning. No nausea vomiting abdominal diarrhea. Laboratory data showed WBC 12.2 hemoglobin 14.0 and platelets 239 Sodium 139 potassium 4.8 chloride 110 bicarb is 20 BUN 24 and creatinine 1.06 LDL 50.9 and blood sugar is controlled. Patient is being continued on apixaban, aspirin and statins and metoprolol. 2D echocardiogram showed moderately increased left ventricular wall thickness. Moderately reduced global left ventricular systolic function left ventricular ejection fraction is 30 to 35%. Moderate right ventricular dilation. Moderatel y increased left atrial volume. CT head showed cerebral atrophy and more noticeable in the frontal lobes. No acute intracranial abnormality noted. Patient was seen by neurology and increased her dose of Topamax. EEG was ordered. Current medications reviewed. Objective - Vital Signs Vital signs: Vital Signs Temp 97.6 F 01/18/22 20:00 Pulse 58 L 01/18/22 20:00 Resp 19 01/18/22 20:00 BP 127/73 01/18/22 20:00 Pulse Ox 93 L 01/18/22 20:00 FiO2 Intake & Output 01/18/22 01/18/22 01/19/22 06:59 18:59 06:59 Output Total 700 525 Balance -700 -525 Output: Urine 700 525 Other: Voiding Method Diaper Diaper External Catheter External Catheter # Bowel Movements 0 - Exam PHYSICAL EXAMINATION: Patient is lying in the bed comfortably, no acute distress, awake alert and oriented and able to answer simple questions... HEENT: Normocephalic. Neck is supple. Pupils reactive. Nostrils clear. Oral cavity is moist. Neck reveals no JVD, carotid bruits, or thyromegaly. CHEST EXAMINATION: Trachea is central. Symmetrical expansion. Lung rosa clear to auscultation and percussion. CARDIAC: Normal S1, S2 with no gallops. No murmurs ABDOMEN: Soft. Bowel sounds present. Nontender. No organomegaly. No abdominal bruits. Extremities: Trace bilateral pedal edema. Patient does have history of chronic gangrenous changes in the toes. No cyanosis. Neurologically awake, alert, oriented x3. Able to move extremities while in bed. No gross focal neurological deficit. Skin: No rash or skin lesions. Psychiatric: Coperative. Nonsuicidal.. Musculoskeletal: No joint swelling or deformity. - Labs CBC & Chem 7: 01/18/22 06:57 01/18/22 06:57 Labs: Abnormal Lab Results - Last 24 Hours (Table) 01/18/22 01/18/22 01/18/22 Range/Units 06:16 06:57 06:57 WBC 12.2 H (3.8-10.6) k/uL Neutrophils # 9.0 H (1.3-7.7) k/uL Chloride 110 H (98-107) mmol/L Carbon Dioxide 20 L (22-30) mmol/L BUN 24 H (9-20) mg/dL Glucose 165 H (74-99) mg/dL POC Glucose (mg/dL) 161 H (70-110) mg/dL Triglycerides 193.00 H (0.00-149.00) mg/dL HDL Cholesterol 28.50 L (40.00-60.00) mg/dL 01/18/22 01/18/22 01/18/22 Range/Units 11:41 16:33 20:11 WBC (3.8-10.6) k/uL Neutrophils # (1.3-7.7) k/uL Chloride (98-107) mmol/L Carbon Dioxide (22-30) mmol/L BUN (9-20) mg/dL Glucose (74-99) mg/dL POC Glucose (mg/dL) 172 H 169 H 179 H (70-110) mg/dL Triglycerides (0.00-149.00) mg/dL HDL Cholesterol (40.00-60.00) mg/dL Assessment and Plan Assessment: Altered mental status. Etiology not known at this time. Resolved now and patient is back to baseline. Possible breakthrough seizures. Patient states that he is not getting his antiplatelet medications daily at [facility]. Elevated troponin level unlikely ACS. Paroxysmal atrial fibrillation on anticoagulation with Eliquis Hypertension Diabetes type 2 [id number] Hypokalemia Seizure disorder. Currently on Vimpat and Topamax. DVT prophylaxis. Plan: Patient will be current telemetry monitoring. Continue with aspirin, statins and metoprolol and anticoagulation with Eliquis. Continue with home medications including Topamax and Vimpat. Topamax dose increased as per neurology recommendations. Follow-up EEG. Cardiology was consulted for elevated troponin levels. 2D echocardiogram was ordered Showed ejection fraction 30 to 35%.. Continue with insulin sliding scale and anticipate discharge back to [facility] soon. Time with Patient: Greater than 30
[2022-01-19 06:13] LABS: Glucose,Whole Blood 159 mg/dL (70-110)
[2022-01-19] MEDS: INSULIN ASPART (NovoLOG) 100 UNIT/ML VIAL SQ SCH ×4 (06:30→21:09)
[2022-01-19 07:47] LABS: Basophils # (A) 0.1 k/uL (0-0.2); Basophils % (A) 1 %; Eosinophils # (A) 0.4 k/uL (0-0.7); Eosinophils % (A) 3 %; HCT 47.6 % (39.0-53.0); HGB 14.8 gm/dL (13.0-17.5); Lymphocytes # (A) 2.6 k/uL (1.0-4.8); Lymphocytes % (A) 20 %; MCV 93.5 fL (80.0-100.0); Mean Platelet Volume 8.6; Monocytes # (A) 0.8 k/uL (0-1.0); Monocytes % (A) 7 %; Neutrophils # (A) 8.6 k/uL (1.3-7.7); Neutrophils % (A) 68 %; Platelet Count 245 k/uL (150-450); RBC 5.09 m/uL (4.30-5.90); RDW 14.6 % (11.5-15.5); WBC 12.7 k/uL (3.8-10.6)
[2022-01-19 07:54] LABS: Calcium 8.7 mg/dL (8.4-10.2)
[2022-01-19 08:16] LABS: Potassium 4.8 mmol/L (3.5-5.1)
[2022-01-19] MEDS: TOPIRAMATE 100 MG TAB PO SCH ×2 (09:39→21:08)
[2022-01-19] MEDS: CHOLECALCIFEROL 25 MCG (1000 IU) TABLET PO SCH (09:40)
[2022-01-19] MEDS: APIXABAN 2.5 MG TABLET PO SCH ×2 (09:40→21:07)
[2022-01-19] MEDS: ASPIRIN 325 MG TAB PO SCH (09:40)
[2022-01-19] MEDS: TOPIRAMATE 25 MG TAB PO SCH ×2 (09:40→21:08)
[2022-01-19] MEDS: LACOSAMIDE 50 MG TABLET PO SCH ×2 (09:42→21:08)
[2022-01-19] MEDS: METOPROLOL SUCCINATE (ER) 50 MG TAB.ER.24H PO SCH (09:43)
[2022-01-19 11:33] LABS: Glucose,Whole Blood 244 mg/dL (70-110)
--- NOTE | 2022-01-19 11:58 | P.PN ---
Subjective This is a 71 year old male with a past medical history of cardiomyopathy (unknown if ischemic vs non-ischemic), dual chamber pacemaker implantation, atrial flutter, permanent atrial fibrillation on Eliquis, dyslipidemia. He states he did see toll lineman and had his pacemaker implanted years ago in [place], [place]. Patient is a poor historian. Patient presents to the emergency department from a half-way due to altered mental status. He was found to have elevated troponins and cardiology was consulted. Patient seen and examined at bedside, no acute distress. No complaints. Denies any chest pain or shortness of breath. Telemetry reviewed patient in atrial flutter with controlled ventricular rates. Vital signs are stable [place] 3035% moderate mitral regurgitation, mild aortic stenosis. Labs: Sodium 140, potassium 4.8, BUN 27, serum creatinine 1.0, proBNP 719 GENERAL: In no acute distress. NECK: Supple without JVD or thyromegaly. LUNGS: Breath sounds clear to auscultation bilaterally. Respiration equal and unlabored. No wheezes, rales or rhonchi. HEART: Regular rate and rhythm systolic murmur at right sternal border and apex, no rubs or gallops. S1 and S2 heard. EXTREMITIES: Normal range of motion, no edema. No clubbing or cyanosis. Peripheral pulses intact. ASSESSMENT Elevated troponin, unclear significance, patient without any chest pain or shortness of breath Altered mental status History of cardiomyopathy (unknown if ischemic vs non-ischemic) Status post dual chamber pacemaker implantation Permanent atrial fibrillation on Eliquis Obesity PLAN We will continue beta ady, statin, Eliquis Unclear why patient was not on ACEI/ARB, will monitor BP No further changes from a cardiology perspective at this time Nurse Practitioner note has been reviewed, I agree with a documented findings and plan of care. Patient was seen and examined. Objective - Vital Signs Vital signs: Vital Signs Temp 98.3 F 01/19/22 03:25 Pulse 62 01/19/22 03:25 Resp 19 01/19/22 03:25 BP 129/80 01/19/22 03:25 Pulse Ox 94 L 01/19/22 03:25 FiO2 Intake & Output 01/18/22 01/19/22 01/19/22 18:59 06:59 18:59 Output Total 525 300 Balance -525 -300 Output: Urine 525 300 Other: Voiding Method Diaper Diaper External Catheter External Catheter - Labs CBC & Chem 7: 01/19/22 07:05 01/19/22 07:05 Labs: Abnormal Lab Results - Last 24 Hours (Table) 01/18/22 01/18/22 01/18/22 Range/Units 06:57 11:41 16:33 WBC (3.8-10.6) k/uL Neutrophils # (1.3-7.7) k/uL Chloride (98-107) mmol/L Carbon Dioxide (22-30) mmol/L BUN (9-20) mg/dL Glucose (74-99) mg/dL POC Glucose (mg/dL) 172 H 169 H (70-110) mg/dL Triglycerides 193.00 H (0.00-149.00) mg/dL HDL Cholesterol 28.50 L (40.00-60.00) mg/dL 01/18/22 01/19/22 01/19/22 Range/Units 20:11 06:12 07:05 WBC 12.7 H (3.8-10.6) k/uL Neutrophils # 8.6 H (1.3-7.7) k/uL Chloride (98-107) mmol/L Carbon Dioxide (22-30) mmol/L BUN (9-20) mg/dL Glucose (74-99) mg/dL POC Glucose (mg/dL) 179 H 159 H (70-110) mg/dL Triglycerides (0.00-149.00) mg/dL HDL Cholesterol (40.00-60.00) mg/dL 01/19/22 Range/Units 07:05 WBC (3.8-10.6) k/uL Neutrophils # (1.3-7.7) k/uL Chloride 113 H (98-107) mmol/L Carbon Dioxide 18 L (22-30) mmol/L BUN 27 H (9-20) mg/dL Glucose 148 H (74-99) mg/dL POC Glucose (mg/dL) (70-110) mg/dL Triglycerides (0.00-149.00) mg/dL HDL Cholesterol (40.00-60.00) mg/dL
--- NOTE | 2022-01-19 12:39 | P.CONS ---
History of Present Illness - Reason for Consult Consult date: 01/19/22 wound care - History of Present Illness This is a 71-year-old patient being seen by the wound care center on [address] for nonhealing ulceration to left foot digits and right foot great toe amputation site. Patient at this time has no open ulcerations. He does have scabbing noted to the left foot digits and at the right toe amputation site. No open drainage noted. Patient states that the ulcerations will open and close on their own often. Patient states that he did have a amputation approximately 3 months ago and [place]. Patient's past medical history significant for hypertension, former smoker, denies diabetes. Review Of Systems: Constitutional: No fever, no chills, no night sweats. No weight change. No wea kness, fatigue or lethargy. No daytime sleepiness. Integumentary:reports wounds, no lesions. No rash or pruritus. No unusual bruising. No change in hair or nails. Physical exam: General Appearance: Alert, cooperative, no distress, appears stated age. Skin: See HPI all other Skin color, texture, tugor normal, no rashes or lesions. Neurologic: Alert oriented x3 Assessment: 1. Nonhealing ulceration with fatty layer exposure right foot resolved 2. Nonhealing ulceration of left foot Limited to skin breakdown resolved Plan: 1. No dressings needed at this time. If the ulcerations to reopen may apply honey gel. Thank you for the consultation any questions please contact the wound care c enter DNP note has been reviewed and discussed with Dr. Caceres and the impression and plan of care has been directed as dictated. Past Medical History Past Medical History: Hypertension History of Any Multi-Drug Resistant Organisms: None Reported Past Surgical History: Unable to Obtain Past Anesthesia/Blood Transfusion Reactions: No Reported Reaction Past Psychological History: No Psychological Hx Reported Smoking Status: Former smoker Past Alcohol Use History: None Reported Past Drug Use History: None Reported - Past Family History Father Family Medical History: Unable to Obtain Mother Family Medical History: Unable to Obtain Medications and Allergies Home Medications Medication Instructions Recorded Confirmed Type Ammonium Lactate Lotion 1 applic TOPICAL Q12H 01/16/22 01/16/22 History [Lac-Hydrin 12% Lotion] Apixaban [Eliquis] 2.5 mg PO BID@0900,2100 01/16/22 01/16/22 History Ascorbic Acid [Vitamin C] 500 mg PO HS@209901/16/22 01/16/22 History Cholecalciferol [Vitamin D3 (25 50 mcg PO DAILY@0900 01/16/22 01/16/22 History Mcg = 1000 Iu)] Cyanocobalamin [Vitamin B-12 1,000 mcg SQ Q30D 01/16/22 01/16/22 History Injection] Lacosamide [Vimpat] 200 mg PO BID@0900,209901/16/22 01/16/22 History Metoprolol Succinate (ER) [Toprol 50 mg PO DAILY@0900 01/16/22 01/16/22 History Xl] Pravastatin Sodium 80 mg PO HS@209901/16/22 01/16/22 History Topiramate [Topamax] 100 mg PO BID@0900,209901/16/22 01/16/22 History metFORMIN HCL 500 mg PO BID@0900,1700 01/16/22 01/16/22 History Allergies Allergy/AdvReac Type Severity Reaction Status Date / Time No Known Allergies Allergy Verified 01/16/22 23:47 Physical Exam Vitals: Vital Signs Temp Pulse Pulse Resp BP Pulse Ox 01/19/22 11:40 97.4 F L 69 20 156/74 96 01/19/22 08:00 97.6 F 60 18 109/67 95 01/19/22 03:25 98.3 F 62 19 129/80 94 L 01/18/22 23:03 97.9 F 54 L 18 136/69 95 01/18/22 20:00 97.6 F 58 L 19 127/73 93 L 01/18/22 17:50 97.8 F 60 16 121/67 96 Intake and Output 01/18/22 01/19/22 01/19/22 22:59 06:59 14:59 Output Total 525 300 300 Balance -525 -300 -300 Output: Urine 525 300 300 Other: Voiding Method Diaper Diaper Diaper External Catheter External Catheter External Catheter Results CBC & Chem 7: 01/19/22 07:05 01/19/22 07:05 Labs: Abnormal Lab Results - Last 24 Hours (Table) 01/18/22 01/18/22 01/19/22 Range/Units 16:33 20:11 06:12 WBC (3.8-10.6) k/uL Neutrophils # (1.3-7.7) k/uL Chloride (98-107) mmol/L Carbon Dioxide (22-30) mmol/L BUN (9-20) mg/dL Glucose (74-99) mg/dL POC Glucose (mg/dL) 169 H 179 H 159 H (70-110) mg/dL 01/19/22 01/19/22 01/19/22 Range/Units 07:05 07:05 11:29 WBC 12.7 H (3.8-10.6) k/uL Neutrophils # 8.6 H (1.3-7.7) k/uL Chloride 113 H (98-107) mmol/L Carbon Dioxide 18 L (22-30) mmol/L BUN 27 H (9-20) mg/dL Glucose 148 H (74-99) mg/dL POC Glucose (mg/dL) 244 H (70-110) mg/dL Assessment and Plan (1) Non-pressure chronic ulcer of other part of right foot with fat layer exposed Current Visit: Yes Status: Acute Code(s): L97.512 - NON-PRS CHRONIC ULCER OTH PRT RIGHT FOOT W FAT LAYER EXPOSED SNOMED Code(s): 238851945 (2) Non-pressure chronic ulcer of other part of left foot limited to breakdown of skin Current Visit: Yes Status: Acute Code(s): L97.521 - NON-PRS CHRONIC ULCER OTH PRT L FOOT LIMITED TO BRKDWN SKIN SNOMED Code(s): 752298657
[2022-01-19 12:55] VITALS: BMI 36.9
--- NOTE | 2022-01-19 13:14 | EEG ---
ELECTROENCEPHALOGRAM REPORT DATE OF SERVICE: 01/19/2022 PREAMBLE: This is a 71-year-old male with altered mental status. At the custodial, the staff felt the patient had seizure like activity that lasted for 2 minutes. He was postictal for 20 minutes. Patient does have history of seizure disorder. The patient currently on Vimpat, Topamax, aspirin, Eliquis. EEG FINDINGS: A 21 channel digital EEG recorded with video component, utilizing 10/20 international system with referential and bipolar montages. Background consists of moderately well- developed and regulated, predominantly 4-7 Hz theta activities moderate amplitude, seen in bihemispheric region. Background does not seem to be reactive to eye opening or closing. Occasional moderate amplitude delta slowing was also seen. Stage 2 sleep was seen with presence of some sleep spindles sporadically. No obvious focal or generalized epileptiform activity was seen. IMPRESSION: This is an abnormal EEG due to background slowing of mild to moderate degree. This is generalized cerebral dysfunction as can be seen with toxic metabolic encephalopathy or due to diffuse structural brain abnormality. Clinical correlation is recommended. No epileptiform activity was seen. MMODL / IJN: [id number] /
[2022-01-19 16:24] LABS: Glucose,Whole Blood 246 mg/dL (70-110)
--- NOTE | 2022-01-19 17:24 | P.PN ---
Subjective Progress Note Date: 01/19/22 Patient was initially seen by Dr. Murtaza Barbosa. Please refer to his note for details. Patient is a 71-year-old male with seizure disorder, also history of a stroke. Patient was taking Topamax 100 mg twice a day and Vimpat 200 mg twice a day. Patient was brought to the hospital by ambulance because of altered mental status. He also has lost control of urine. Patient was noted to have delayed response to person place and time and the scene, per EMS report. Patient says that he has been living in the skilled nursing for last 3 years. He states that he has history of seizure disorder for last 7-8 years. He does not remember name of his neurologist, who is in [facility]. Patient states he has history of neck surgery 2 times in the past, that occurred in [facility] about 5-6 years ago. Objective - Vital Signs Vital signs: Vital Signs Temp 97.4 F L 01/19/22 11:40 Pulse 69 01/19/22 11:40 Resp 20 01/19/22 11:40 BP 156/74 01/19/22 11:40 Pulse Ox 96 01/19/22 11:40 FiO2 Intake & Output 01/18/22 01/19/22 01/19/22 18:59 06:59 18:59 Output Total 525 300 300 Balance -525 -300 -300 Output: Urine 525 300 300 Other: Voiding Method Diaper Diaper Diaper External Catheter External Catheter External Catheter - Exam Patient is an elderly male, in no acute distress. He is comfortably laying in the bed. He states that he is in [facility]. He knows it is December and the year is 2021 and that Mr. Hackett is the president. Speech and language functions are normal. No aphasia or dysarthria. Patient's heart rate is regular. No murmur. Chest is clear to auscultation. No wheezing. Bowel sounds are present in all 4 quadrants. No tenderness. Cranial nerves reveal pupils equal, round and reactive to light. Visual rosa are full. Extraocular muscles are intact. Face is symmetric. Facial strength is normal. Hearing is normal. Tongue is midline. Motor: The strength is has increased tone of distal digitis of both hand (right > left) and has arthritis change. But proximal uppers are 5/5. Distal hands is able to make fist. Lowers is able to lift above gravity proximally symetrically but limited in lowers because of pain. 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 Appearance of gangrenous over the dorsal aspect of left foot. Sensation: Sensation is normal to touch throughout. - Labs CBC & Chem 7: 01/19/22 07:05 01/19/22 07:05 Labs: Abnormal Lab Results - Last 24 Hours (Table) 01/18/22 01/18/22 01/19/22 Range/Units 16:33 20:11 06:12 WBC (3.8-10.6) k/uL Neutrophils # (1.3-7.7) k/uL Chloride (98-107) mmol/L Carbon Dioxide (22-30) mmol/L BUN (9-20) mg/dL Glucose (74-99) mg/dL POC Glucose (mg/dL) 169 H 179 H 159 H (70-110) mg/dL 01/19/22 01/19/22 01/19/22 Range/Units 07:05 07:05 11:29 WBC 12.7 H (3.8-10.6) k/uL Neutrophils # 8.6 H (1.3-7.7) k/uL Chloride 113 H (98-107) mmol/L Carbon Dioxide 18 L (22-30) mmol/L BUN 27 H (9-20) mg/dL Glucose 148 H (74-99) mg/dL POC Glucose (mg/dL) 244 H (70-110) mg/dL Assessment and Plan Assessment: Breakthrough seizure. He is at new nursing facility and not sure if he has been receiving his home antiepileptic drugs. History of seizure disorder. Elevated troponin is trending down Left parietal encephalomalacia on the CAT scan of the head seems due to likely old stroke Likely cognitive impalement/dementia History of Peripheral arterial disease History of atrial fibrillation on Eliquis, cardiomyopathy Hypertension History of pacemaker. Plan: EEG was abnormal due to background slowing of mild to moderate degree. This is suggestive of generalized cerebral dysfunction as can be seen with toxic m etabolic encephalopathy or due to diffuse structural brain abnormality. Clinical correlation is recommended. No epileptiform activity was seen. Continue Vimpat 200 mg 1 tablet twice a day, Topamax 100 mg 1 tablet twice a day are resumed. Dr. Basha has increased dose of Topamax to 150mg bid. Patient is tolerating higher dose of Topamax well. Patient cannot have MRI of the brain because of having a pacemaker. TSH 1.61, vitamin B12 593, folate 10.20, all normal. Placed on seizure precautions seizure Patient is on home medication of eliquis 2.5mg bid. Also started on aspirin 81 mg daily. Cardiology is on board. We'll defer the rest of the medical management to primary team. Neurologically clear. Recommend patient follow up with his neurologist in 1-2 weeks after discharge.
[2022-01-19] MEDS ORDERED: LORazepam 2 MG/ML INJ IV PRN (18:01)
[2022-01-19 20:04] LABS: Glucose,Whole Blood 226 mg/dL (70-110)
[2022-01-19] MEDS: ASCORBIC ACID 500 MG TAB PO SCH (21:08)
[2022-01-19] MEDS: PRAVASTATIN SODIUM 80 MG TAB PO SCH (21:09)
[2022-01-20 03:37] VITALS: TEMP 97.6
[2022-01-20 06:04] LABS: Glucose,Whole Blood 132 mg/dL (70-110)
--- NOTE | 2022-01-20 06:10 | P.PN ---
Subjective Progress Note Date: 01/19/22 Patient is a 71-year-old male with a known history of hypertension, hyperlipidemia, diabetes type 2 [id number], atrial fibrillation on anticoagulation with Eliquis and generalized medical debility, seizure disorder on AEDs and history of amputation of the toes and chronic gangrenous changes who is currently at snf was sent to ER due to altered mental status. According to the nursing staff patient was not able to answer simple questions. Patient was transferred to ER and also suspected having a seizure. No witnessed seizure was noted. Currently patient is awake alert oriented x3 and is able to answer appropriately. Patient states that he moved to this area [place], [place] Otherwise denied any chest pain or shortness of breath. No nausea vomiting abdomen pain or diarrhea. Denied any recent illnesses. No fever no chills. Denied any cough or sputum production. No abdominal pain. No dysuria or hematuria. Chest x-ray showed there is some mild coarsening of the left side pulmonary interstitial markings. No heart failure or pulmonary consolidation noted. EKG showed ventricular paced rhythm. Laboratory data showed WBC 12.4 hemoglobin 14.7 platelets 264 Sodium 138 potassium 4.9 chloride 108 bicarb is 21 BUN 24 and creatinine 0.96 and blood sugar is 239 and troponin 1.030, 0.842 and 0.613 and 0.493. Ammonia less than 911 years are not elevated urinalysis is negative for infection UDS is negative. 01/18/2022 Patient is lying in the bed. Awake alert and oriented and able to answer simple questions. No complaints of chest pain or shortness of breath. Patient is on room air and saturating at 96% this morning. No nausea vomiting abdominal diarrhea. Laboratory data showed WBC 12.2 hemoglobin 14.0 and platelets 239 Sodium 139 potassium 4.8 chloride 110 bicarb is 20 BUN 24 and creatinine 1.06 LDL 50.9 and blood sugar is controlled. Patient is being continued on apixaban, aspirin and statins and metoprolol. 2D echocardiogram showed moderately increased left ventricular wall thickness. Moderately reduced global left ventricular systolic function left ventricular ejection fraction is 30 to 35%. Moderate right ventricular dilation. Moderat hugo increased left atrial volume. CT head showed cerebral atrophy and more noticeable in the frontal lobes. No acute intracranial abnormality noted. Patient was seen by neurology and increased her dose of Topamax. EEG was ordered. 01/19/2022 Patient is seen and evaluated in follow-up undergoing neurological evaluation. EEG was abnormal due to encephalopathy with no epileptiform activity noted. Patient has pacemaker and unable to obtain mri of the brain. Patient is continued on seizure precautions and will continue. Patient is continued on Vimpat and also topamax. Patient [id number] on eliquis and aspirin has been added. Patient is afebrile and denies chest pain or shortness of breath. Patient tolerating diet with no reports of nausea or vomiting noted. [id number] monitoring accuchecks closely. Patient lives at [facility] and will be returning there once discharged. Patient is eager to go. Active Medications Apixaban (Apixaban 2.5 Mg Tablet) 2.5 mg PO BID@0900,2099 [facility]; Protocol Last Admin: 01/19/22 09:40 Dose: 2.5 mg Ascorbic Acid (Ascorbic Acid 500 Mg Tab) 500 mg PO HS@2100 [facility] Last Admin: 01/18/22 20:40 Dose: 500 mg Aspirin (Aspirin 81 Mg) 81 mg PO DAILY [facility] Cholecalciferol (Cholecalciferol 25 Mcg (1000 Iu) Tablet) 50 mcg PO DAILY@0900 [facility] Last Admin: 01/19/22 09:40 Dose: 50 mcg Cyanocobalamin (Cyanocobalamin 1,000 Mcg/Ml 1 Ml Vial) 1,000 mcg SQ Q30D [facility] Insulin Aspart (Insulin Aspart (Novolog) 100 Unit/Ml Vial) 0 unit SQ ACHS [facility]; Protocol Last Admin: 01/19/22 12:13 Dose: 3 unit Lacosamide (Lacosamide 50 Mg Tablet) 200 mg PO BID@0900,2099 [facility] Last Admin: 01/19/22 09:42 Dose: 200 mg Lorazepam (Lorazepam 1 Mg/0.5 Ml Vial) 1 mg IV Q6HR PRN PRN Reason: Seizures Metoprolol Succinate (Metoprolol Succinate (Er) 50 Mg Tab.Er.24h) 50 mg PO DAILY@0900 [facility] Last Admin: 01/19/22 09:43 Dose: 50 mg Nitroglycerin (Nitroglycerin Sl Tabs 0.4 Mg Tab) 0.4 mg SUBLINGUAL Q5M PRN PRN Reason: Chest Pain Pravastatin Sodium (Pravastatin Sodium 80 Mg Tab) 80 mg PO HS@2100 [facility] Last Admin: 01/18/22 20:39 Dose: 80 mg Topiramate (Topiramate 100 Mg Tab) 100 mg PO BID@0900,2100 [facility] Last Admin: 01/19/22 09:39 Dose: 100 mg Topiramate (Topiramate 25 Mg Tab) 50 mg PO BID [facility] Last Admin: 01/19/22 09:40 Dose: 50 mg PHYSICAL EXAMINATION: Patient is lying in the bed comfortably, no acute distress, awake alert and oriented and able to answer simple questions... HEENT: Normocephalic. Neck is supple. Pupils reactive. Nostrils clear. Oral cavity is moist. Neck reveals no JVD, carotid bruits, or thyromegaly. CHEST EXAMINATION: Trachea is central. Symmetrical expansion. Lung rosa clear to auscultation and percussion. CARDIAC: Normal S1, S2 with no gallops. No murmurs ABDOMEN: Soft. Bowel sounds present. Nontender. No organomegaly. No abdominal bruits. Extremities: Trace bilateral pedal edema. Patient does have history of chronic gangrenous changes in the toes. No cyanosis. Neurologically awake, alert, oriented x3. Able to move extremities while in bed. No gross focal neurological deficit. Skin: No rash or skin lesions. Psychiatric: Coperative. Nonsuicidal.. Musculoskeletal: No joint swelling or deformity. Assessment: Altered mental status. Etiology not known at this time. Resolved now and patient is back to baseline. Possible breakthrough seizures. Patient states that he is not getting his antiplatelet medications daily at snf. Elevated troponin level unlikely ACS. Paroxysmal atrial fibrillation on anticoagulation with Eliquis Hypertension Diabetes type 2 [id number] Hypokalemia Seizure disorder. Currently on Vimpat and Topamax. DVT prophylaxis. No code Plan: Patient will be current telemetry monitoring. Continue with aspirin, statins and metoprolol and anticoagulation with Eliquis. Continue with home medications including Topamax and Vimpat. Topamax dose increased as per neurology recommendations. EEG showing no epileptiform discharges. Neuro recommends outpatient follow up and continue current medications. Cardiology following for elevated troponin levels. 2D echocardiogram Showed ejection fraction 30 to 35%.. Continue with insulin sliding scale and accuchecks achs. Anticipate discharge back to [facility] in 24 hours. The impression and plan of care has been dictated by Fanta Zabala, Nurse Practitioner as directed. Dr. Alcides MD I have performed a history and examination and MDM of this patient, discussed the same with the dictator, and agree with the dictator's assessment and plan as written ,documented as a scribe. Based on total visit time, I have performed more than 50% of the visit. Objective - Vital Signs Vital signs: Vital Signs Temp 97.4 F L 01/19/22 11:40 Pulse 69 01/19/22 11:40 Resp 20 01/19/22 11:40 BP 156/74 01/19/22 11:40 Pulse Ox 96 01/19/22 11:40 FiO2 Intake & Output 01/18/22 01/19/22 01/19/22 18:59 06:59 18:59 Output Total 525 300 300 Balance -525 -300 -300 Weight 127.006 kg Output: Urine 525 300 300 Other: Voiding Method Diaper Diaper Diaper External Catheter External Catheter External Catheter - Labs CBC & Chem 7: 01/19/22 07:05 01/19/22 07:05 Labs: Abnormal Lab Results - Last 24 Hours (Table) 01/18/22 01/18/22 01/19/22 Range/Units 16:33 20:11 06:12 WBC (3.8-10.6) k/uL Neutrophils # (1.3-7.7) k/uL Chloride (98-107) mmol/L Carbon Dioxide (22-30) mmol/L BUN (9-20) mg/dL Glucose (74-99) mg/dL POC Glucose (mg/dL) 169 H 179 H 159 H (70-110) mg/dL 01/19/22 01/19/22 01/19/22 Range/Units 07:05 07:05 11:29 WBC 12.7 H (3.8-10.6) k/uL Neutrophils # 8.6 H (1.3-7.7) k/uL Chloride 113 H (98-107) mmol/L Carbon Dioxide 18 L (22-30) mmol/L BUN 27 H (9-20) mg/dL Glucose 148 H (74-99) mg/dL POC Glucose (mg/dL) 244 H (70-110) mg/dL
[2022-01-20] MEDS: INSULIN ASPART (NovoLOG) 100 UNIT/ML VIAL SQ SCH ×2 (06:42→12:40)
[2022-01-20] MEDS: METOPROLOL SUCCINATE (ER) 50 MG TAB.ER.24H PO SCH (08:55)
[2022-01-20] MEDS: TOPIRAMATE 25 MG TAB PO SCH (08:55)
[2022-01-20] MEDS: APIXABAN 2.5 MG TABLET PO SCH (08:55)
[2022-01-20] MEDS: TOPIRAMATE 100 MG TAB PO SCH (08:55)
[2022-01-20] MEDS: LACOSAMIDE 50 MG TABLET PO SCH (08:59)
[2022-01-20] MEDS ORDERED: ASPIRIN 81 MG PO SCH (09:00)
[2022-01-20] MEDS: CHOLECALCIFEROL 25 MCG (1000 IU) TABLET PO SCH (09:00)
[2022-01-20 09:05] VITALS: RESP 16
[2022-01-20 11:39] LABS: Glucose,Whole Blood 139 mg/dL (70-110)
[2022-01-20] MEDS ORDERED: lisinopriL 5 MG TAB PO SCH (11:45)
--- NOTE | 2022-01-20 12:04 | P.PN ---
Subjective This is a 71 year old male with a past medical history of cardiomyopathy (unknown if ischemic vs non-ischemic), dual chamber pacemaker implantation, atrial flutter, permanent atrial fibrillation on Eliquis, dyslipidemia. He states he did see electronic security technician and had his pacemaker implanted years ago in [place], [place]. Patient is a poor historian. Patient [facility] due to altered mental status. He was found to have elevated troponins and cardiology was consulted. Patient seen and examined at bedside, no acute distress. No complaints. Denies any chest pain or shortness of breath. Telemetry reviewed patient in atrial flutter with controlled ventricular rates. Vital signs are stable Echocardiogram revealed an EF [place] 3035% moderate mitral regurgitation, mild aortic stenosis. GENERAL: In no acute distress. NECK: Supple without JVD or thyromegaly. LUNGS: Breath sounds clear to auscultation bilaterally. Respiration equal and unlabored. No wheezes, rales or rhonchi. HEART: Regular rate and rhythm systolic murmur at right sternal border and apex, no rubs or gallops. S1 and S2 heard. EXTREMITIES: Normal range of motion, no edema. No clubbing or cyanosis. Peripheral pulses intact. ASSESSMENT Elevated troponin, unclear significance, patient without any chest pain or shortness of breath Altered mental status History of cardiomyopathy (unknown if ischemic vs non-ischemic) Status post dual chamber pacemaker implantation Permanent atrial fibrillation on Eliquis Obesity PLAN We will continue beta ady, statin, Eliquis Start lisinopril 5mg daily No other changes from a cardiology perspective at this time Nurse Practitioner note has been reviewed, I agree with a documented findings and plan of care. Patient was seen and examined. Objective - Vital Signs Vital signs: Vital Signs Temp 97.6 F 01/20/22 03:35 Pulse 68 01/20/22 08:00 Resp 16 01/20/22 08:00 BP 148/77 01/20/22 08:00 Pulse Ox 96 01/20/22 08:00 FiO2 Intake & Output 01/19/22 01/20/22 01/20/22 18:59 06:59 18:59 Intake Total 358 30 Output Total 550 425 Balance -192 -425 30 Weight 127.006 kg Intake: Oral 358 30 Output: Urine 550 425 Other: Voiding Method Diaper Urinal External Catheter Diaper External Catheter - Labs CBC & Chem 7: 01/19/22 07:05 01/19/22 07:05 Labs: Abnormal Lab Results - Last 24 Hours (Table) 01/19/22 01/19/22 01/19/22 Range/Units 11:29 16:22 20:02 POC Glucose (mg/dL) 244 H 246 H 226 H (70-110) mg/dL 01/20/22 Range/Units 06:02 POC Glucose (mg/dL) 132 H (70-110) mg/dL
[2022-01-20 12:51] VITALS: BP 129/72; PULSE 65
--- NOTE | 2022-01-20 13:03 | P.DS ---
Providers Date of admission: 01/17/22 06:35 Expected date of discharge: 01/20/22 Attending physician: Oleg Reese Consults: 01/17/22 06:35 Consult Physician Routine Consulting Provider: Kenneth Morales Consult Reason/Comments: Elevated troponin Do you want consulting provider notified?: Yes 01/18/22 04:52 Consult Physician Routine Consulting Provider: Murtaza Barbosa Consult Reason/Comments: Possible seizure Do you want consulting provider notified?: Yes, Notify in am Primary care physician: Ja Taylor Hospital Course: Final diagnosis Altered mental status. Etiology not known at this time. Resolved now and patient is back to baseline. Possible breakthrough seizures, ruled out, EEG was negative Elevated troponin ruled out ACS. Paroxysmal atrial fibrillation on anticoagulation with Eliquis Hypertension Diabetes type 2 [id number] Hypokalemia Seizure disorder. Currently on Vimpat and Topamax. DVT prophylaxis. No code Discharge disposition Patient is being discharged in a stable condition with guarded prognosis to [facility] where he is a resident. Patient will follow-up with Dr. Tyalor in the outpatient setting upon discharge. Patient is to continue with then pat and Topamax as ordered and will need outpatient neurology follow-up . Total time taken is greater than 35 minutes. Hospital course This is a 71-year-old male who was recently admitted with altered mental status with possible seizure. No seizure activity noted. Patient did undergo neurological workup and is maintained on Vimpat along with Topamax which has been increased and recommending outpatient neurology follow-up. Patient also being followed by cardiology and recommending continuing current medications. Patient's mentation appears to be baseline an EEG was negative for any epileptiform discharges. Patient reports the feeling well and would like to return to [facility]. Patient is continued on heart healthy diet and does have history of diabetes and takes oral diabetic agents. Recommend Accu-Cheks before meals and at bedtime and may use sliding scale if blood sugars continue to elevate. Recommend repeat labs of CBC and BMP in the next 2-3 days and neurology follow-up in the outpatient setting. Currently no reports of chest pain, shortness of breath, or palpitations. Patient is afebrile. No reports of nausea or vomiting and patient is tolerating diet. Patient will be going to [facility] on [facility] today. Guarded prognosis. Physical exam: Gen: This is a 71-year-old male awake, alert and oriented 2, well-developed, well-nourished, obese. HEENT: Head is atraumatic, normocephalic. Pupils equal, round. Sclerae is anicteric. NECK: Supple. No JVD. No lymphadenopathy. No thyromegaly. LUNGS: Diminished breath sounds bilaterally with no wheezing or rhonchi noted. No intercostal retractions. HEART: S1, S2 are muffled ABDOMEN: Soft. Bowel sounds are present. No masses. No tenderness. EXTREMITIES: No pedal edema. No calf tenderness. Chronic gangrenous changes to the toes of bilateral feet and was evaluated by wound care recommending continuing current treatment and no signs of cellulitis or infection noted NEUROLOGICAL: Patient is awake, alert and oriented x3. Cranial nerves 2 through 12 are grossly intact. Please refer to medication reconciliation sheet for a list of medications. The impression and plan of care has been dictated by Fanta Zabala, Nurse Practitioner as directed. Dr. Alcides MD I have performed a history and examination and MDM of this patient, discussed the same with the dictator, and agree with the dictator's assessment and plan as written ,documented as a scribe. Based on total visit time, I have performed more than 50% of the visit. Patient Condition at Discharge: Good Plan - Discharge Summary Discharge Rx Participant: No New Discharge Prescriptions: New Aspirin 81 mg PO DAILY tab Topiramate [Topamax] 50 mg PO BID tab lisinopriL [Zestril] 5 mg PO DAILY tab Nitroglycerin Sl Tabs [Nitrostat] 0.4 mg SUBLINGUAL Q5M PRN tab PRN Reason: Chest Pain Continue Topiramate [Topamax] 100 mg PO BID@0900,2100 Apixaban [Eliquis] 2.5 mg PO BID@0900,2100 Metoprolol Succinate (ER) [Toprol XL] 50 mg PO DAILY@0900 Cholecalciferol [Vitamin D3 (25 Mcg = 1000 Iu)] 50 mcg PO DAILY@0900 metFORMIN HCL 500 mg PO BID@0900,1700 Cyanocobalamin [Vitamin B-12 Injection] 1,000 mcg SQ Q30D Pravastatin Sodium 80 mg PO HS@2100 Ascorbic Acid [Vitamin C] 500 mg PO HS@2100 Ammonium Lactate Lotion [Lac-Hydrin 12% Lotion] 1 applic TOPICAL Q12H Lacosamide [Vimpat] 200 mg PO BID@899,2099 #6 tab Discharge Medication List Ammonium Lactate Lotion [Lac-Hydrin 12% Lotion] 1 applic TOPICAL Q12H 01/16/22 [History] Apixaban [Eliquis] 2.5 mg PO BID@0900,209901/16/22 [History] Ascorbic Acid [Vitamin C] 500 mg PO HS@209901/16/22 [History] Cholecalciferol [Vitamin D3 (25 Mcg = 1000 Iu)] 50 mcg PO DAILY@0901/16/22 [History] Cyanocobalamin [Vitamin B-12 Injection] 1,000 mcg SQ Q30D 01/16/22 [History] Metoprolol Succinate (ER) [Toprol XL] 50 mg PO DAILY@89901/16/22 [History] Pravastatin Sodium 80 mg PO HS@209901/16/22 [History] Topiramate [Topamax] 100 mg PO BID@09,209901/16/22 [History] metFORMIN HCL 500 mg PO BID@0900,1700 01/16/22 [History] Aspirin 81 mg PO DAILY tab 01/20/22 [Rx] Lacosamide [Vimpat] 200 mg PO BID@899,2099 #6 tab 01/20/22 [Rx] Nitroglycerin Sl Tabs [Nitrostat] 0.4 mg SUBLINGUAL Q5M PRN tab 01/20/22 [Rx] Topiramate [Topamax] 50 mg PO BID tab 01/20/22 [Rx] lisinopriL [Zestril] 5 mg PO DAILY tab 01/20/22 [Rx] Follow up Appointment(s)/Referral(s): Kaye Dolan MD [REFERRING] - 1 Week Ja Taylor MD [Primary Care Provider] - 1-2 days Ambulatory/Diagnostic Orders: Complete Blood Count w/diff [LAB.AMB] Time Frame: 3 Days, Location: None Selected Patient Instructions/Handouts: Recurrent Seizures in Adults (DC) Activity/Diet/Wound Care/Special Instructions: Patient is returning to [facility] on the [place] Activity as tolerated Continue current medications Follow-up with primary care provider on discharge Follow up with neurology in the outpatient setting Recommend repeat labs in 2-3 days to monitor CBC and BMP Recommend to continue heart healthy diet Discharge Disposition: TRANSFER TO SNF/ECF
--- NOTE | 2022-01-21 08:47 | P.PN ---
Subjective Progress Note Date: 01/20/22 01/20/2022: Patient was seen for a follow-up. Patient is laying comfortably in the bed. Offers no complaints. Telemetry showing atrial flutter, V-paced. Patient denies any headache, no dizziness, no numbness or tingling. No syncopal spells. No seizures. Patient tolerating seizure medications well. 01/19/2022: Patient was initially seen by Dr. Murtaza Barbosa. Please refer to his note for details. Patient is a 71-year-old male with seizure disorder, also history of a stroke. Patient was taking Topamax 100 mg twice a day and Vimpat 200 mg twice a day. Patient was brought to the hospital by ambulance because of altered mental status. He also has lost control of urine. Patient was noted to have delayed response to person place and time and the scene, per EMS report. Patient says that he has been living in the snf for last 3 years. He states that he has history of seizure disorder for last 7-8 years. He does not remember name of his neurologist, who is in [facility]. Patient states he has history of neck surgery 2 times in the past, that occurred in [facility] about 5-6 years ago. Objective - Vital Signs Vital signs: Vital Signs Temp 97.6 F 01/20/22 03:35 Pulse 65 01/20/22 12:00 Resp 16 01/20/22 12:00 BP 129/72 01/20/22 12:00 Pulse Ox 94 L 01/20/22 12:00 FiO2 Intake & Output 01/19/22 01/20/22 01/20/22 18:59 06:59 18:59 Intake Total 358 30 Output Total 550 425 150 Balance -192 -425 -120 Weight 127.006 kg Intake: Oral 358 30 Output: Urine 550 425 150 Other: Voiding Method Diaper Urinal Urinal External Catheter Diaper Diaper External Catheter External Catheter - Exam Patient is an elderly male, in no acute distress. He is comfortably laying in the bed. Patient knows it is December and the year is 2021 and that he is in the hospital but does not know the name. He knows that he is in [facility]. Seech and language functions are normal. No aphasia or dysarthria. Patient's heart rate is regular. No murmur. Chest is clear to auscultation. No wheezing. Bowel sounds are present in all 4 quadrants. No tenderness. Cranial nerves reveal pupils equal, round and reactive to light. Visual rosa are full. Extraocular muscles are intact. Face is symmetric. Facial strength is normal. Hearing is normal. Tongue is midline. Motor: The strength is has increased tone of distal digitis of both hand (right > left) and has arthritis change. But proximal uppers are 5/5. Distal hands is able to make fist. Lowers is able to lift above gravity proximally symetrically but limited in lowers because of pain. 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 Appearance of gangrenous over the dorsal a spect of left foot. Sensation: Sensation is normal to touch throughout. - Labs CBC & Chem 7: 01/19/22 07:05 01/19/22 07:05 Labs: Abnormal Lab Results - Last 24 Hours (Table) 01/19/22 01/19/22 01/20/22 Range/Units 16:22 20:02 06:02 POC Glucose (mg/dL) 246 H 226 H 132 H (70-110) mg/dL 01/20/22 Range/Units 11:38 POC Glucose (mg/dL) 139 H (70-110) mg/dL Assessment and Plan Assessment: Breakthrough seizure. He is at new nursing facility and not sure if he has been receiving his home antiepileptic drugs. History of seizure disorder. Elevated troponin is trending down Left parietal encephalomalacia on the CAT scan of the head seems due to likely old stroke Likely cognitive impalement/dementia History of Peripheral arterial disease History of atrial fibrillation on Eliquis, cardiomyopathy Hypertension History of pacemaker. Plan: EEG was abnormal due to background slowing of mild to moderate degree. This is suggestive of generalized cerebral dysfunction as can be seen with toxic metabolic encephalopathy or due to diffuse structural brain abnormality. Clinical correlation is recommended. No epileptiform activity was seen. Continue Vimpat 200 mg 1 tablet twice a day, Topamax 100 mg 1 tablet twice a day are resumed. Dr. Barbosa has increased dose of Topamax to 150mg bid. Patient is tolerating higher dose of Topamax well. Patient cannot have MRI of the brain because of having a pacemaker. TSH 1.61, vitamin B12 593, folate 10.20, all normal. Placed on seizure precautions seizure Patient is on home medication of eliquis 2.5mg bid. Also started on aspirin 81 mg daily. Cardiology is on board. We'll defer the rest of the medical management to primary team. Neurologically clear. Recommend patient follow up with his neurologist in 1-2 weeks after discharge. Neurology will sign off.
[2022-01-30] MEDS ORDERED: CYANOCOBALAMIN 1,000 MCG/ML 1 ML VIAL SQ SCH (09:00)
== END 2022-01-20 15:26 ==
LOC: EEVIPCON 21:55 → EC 21:55 → 3SCARD 01-17 06:35
PROVIDERS: ADMIT Internal Medicine; ATTEND Internal Medicine
DX: R41.82 Altered mental status, unspecified (principal); E87.6 Hypokalemia; R79.89 Other specified abnormal findings of blood chemistry; G40.909 Epilepsy, unspecified, not intractable, without status epilepticus; I48.21 Permanent atrial fibrillation; I42.9 Cardiomyopathy, unspecified; I48.92 Unspecified atrial flutter; R94.01 Abnormal electroencephalogram [EEG]; I10 Essential (primary) hypertension; E11.52 Type 2 diabetes mellitus with diabetic peripheral angiopathy with gangrene; E11.621 Type 2 diabetes mellitus with foot ulcer; L97.521 Non-pressure chronic ulcer of other part of left foot limited to breakdown of skin; L97.512 Non-pressure chronic ulcer of other part of right foot with fat layer exposed; E78.5 Hyperlipidemia, unspecified; I44.7 Left bundle-branch block, unspecified; I08.3 Combined rheumatic disorders of mitral, aortic and tricuspid valves; G93.89 Other specified disorders of brain; G93.40 Encephalopathy, unspecified; E66.9 Obesity, unspecified; Z68.36 Body mass index [BMI] 36.0-36.9, adult; Z79.01 Long term (current) use of anticoagulants; Z79.899 Other long term (current) drug therapy; Z79.84 Long term (current) use of oral hypoglycemic drugs; Z87.891 Personal history of nicotine dependence; Z95.0 Presence of cardiac pacemaker; Z89.411 Acquired absence of right great toe; Z89.421 Acquired absence of other right toe(s); Z86.73 Personal history of transient ischemic attack (TIA), and cerebral infarction without residual deficits; Z74.01 Bed confinement status
CPT/HCPCS: 99285; 36415; 95816; 93005; 97162; 97166; 83880; 80061; 80053; 80048 ×2; 82607; 82140; 82746; 84443; 84484; 85025 ×3; 81001; 80306; 71045; 70450; G0378 ×4; C8929; Q9950; 93306

== ENCOUNTER 2023-02-14 00:36 | Emergency (ER) | payer MEDICARE, OTHER ==
[2023-02-14 00:45] VITALS: TEMP 97.3
[2023-02-14] MEDS ORDERED: SODIUM CHLORIDE 0.9% 1,000 ML IV ONE (01:00)
[2023-02-14 01:35] LABS: ALT 22 U/L (4-49); AST 24 U/L (17-59); African American GFR (CKD) 68 (>60 ml/min/1.73 sqM); Albumin 3.6 g/dL (3.5-5.0); Alkaline Phosphatase 92 U/L (38-126); Anion Gap 13 mmol/L; Blood Urea Nitrogen 27 mg/dL (9-20); Calcium 8.6 mg/dL (8.4-10.2); Carbon Dioxide 15 mmol/L (22-30); Chloride 110 mmol/L (98-107); Glucose 154 mg/dL (74-99); Lipase 143 U/L (23-300); Magnesium 1.9 mg/dL (1.6-2.3); Non-African American GFR(CKD) 59 (>60 ml/min/1.73 sqM); Potassium 4.3 mmol/L (3.5-5.1); Sodium 138 mmol/L (137-145); Total Bilirubin 0.3 mg/dL (0.2-1.3); Total Protein 7.4 g/dL (6.3-8.2)
[2023-02-14 01:43] LABS: Basophils % (A) 0 %; Eosinophils # (A) 0.4 k/uL (0-0.7); Eosinophils % (A) 4 %; HCT 39.5 % (39.0-53.0); Lymphocytes # (A) 1.8 k/uL (1.0-4.8); Lymphocytes % (A) 18 %; MCH 29.2 pg (25.0-35.0); MCHC 32.8 g/dL (31.0-37.0); Mean Platelet Volume 9.8; Monocytes # (A) 0.8 k/uL (0-1.0); Monocytes % (A) 8 %; Neutrophils # (A) 6.6 k/uL (1.3-7.7); Neutrophils % (A) 68 %; RBC 4.44 m/uL (4.30-5.90); RDW 15.2 % (11.5-15.5); WBC 9.8 k/uL (3.8-10.6)
--- NOTE | 2023-02-14 02:31 | ED ---
General Adult HPI - General Chief complaint: Seizure Stated complaint: Seizure Time Seen by Provider: 02/14/23 00:45 Source: patient, EMS Mode of arrival: EMS - History of Present Illness Initial comments: This is a 72-year-old male who presents emergency department by EMS from his nursing facility for reported seizure. It was reported that the patient had a seizure 3 within 1 minute. This was reported by the nursing staff at the nursing facility and told to EMS here. On arrival, the patient was awake, alert and ANO 3. The patient denied any acute pain or distress and does not remember or know why he is in the emergency department. The patient was otherwise resting in bed comfortably in no further history could be obtained at this time. - Related Data Home Medications Medication Instructions Recorded Confirmed Ammonium Lactate Lotion 1 applic TOPICAL Q12H 01/16/22 01/16/22 [Lac-Hydrin 12% Lotion] Apixaban [Eliquis] 2.5 mg PO BID@0900,209901/16/22 01/16/22 Ascorbic Acid [Vitamin C] 500 mg PO HS@209901/16/22 01/16/22 Cholecalciferol [Vitamin D3 (25 50 mcg PO DAILY@0900 01/16/22 01/16/22 Mcg = 1000 Iu)] Cyanocobalamin [Vitamin B-12 1,000 mcg SQ Q30D 01/16/22 01/16/22 Injection] Metoprolol Succinate (ER) [Toprol 50 mg PO DAILY@0900 01/16/22 01/16/22 XL] Pravastatin Sodium 80 mg PO HS@209901/16/22 01/16/22 Topiramate [Topamax] 100 mg PO BID@0900,209901/16/22 01/16/22 metFORMIN HCL 500 mg PO BID@0900,1700 01/16/22 01/16/22 Previous Rx's Medication Instructions Recorded Aspirin 81 mg PO DAILY tab 01/20/22 Lacosamide [Vimpat] 200 mg PO BID@0900,2099 #6 tab 01/20/22 Nitroglycerin Sl Tabs [Nitrostat] 0.4 mg SUBLINGUAL Q5M PRN tab 01/20/22 Topiramate [Topamax] 50 mg PO BID tab 01/20/22 lisinopriL [Zestril] 5 mg PO DAILY tab 01/20/22 Allergies Allergy/AdvReac Type Severity Reaction Status Date / Time No Known Allergies Allergy Verified 02/14/23 00:45 Review of Systems ROS Statement: Those systems with pertinent positive or pertinent negative responses have been documented in the HPI. ROS Other: All systems not noted in ROS Statement are negative. Past Medical History Past Medical History: Hypertension History of Any Multi-Drug Resistant Organisms: None Reported Past Surgical History: Unable to Obtain Past Anesthesia/Blood Transfusion Reactions: No Reported Reaction Past Psychological History: No Psychological Hx Reported Smoking Status: Former smoker Past Alcohol Use History: None Reported Past Drug Use History: None Reported - Past Family History Father Family Medical History: Unable to Obtain Mother Family Medical History: Unable to Obtain General Exam Limitations: no limitations General appearance: alert, in no apparent distress, obese Head exam: Present: atraumatic, normocephalic, normal inspection Eye exam: Present: normal appearance, PERRL Pupils: Present: normal accommodation ENT exam: Present: normal exam, normal oropharynx, mucous membranes moist Neck exam: Present: normal inspection, full ROM Respiratory exam: Present: normal lung sounds bilaterally Cardiovascular Exam: Present: regular rate, normal rhythm, normal heart sounds GI/Abdominal exam: Present: soft, normal bowel sounds Extremities exam: Present: normal inspection, full ROM Back exam: Present: normal inspection, full ROM Neurological exam: Present: alert, oriented X3, CN II-XII intact Psychiatric exam: Present: normal affect, normal mood Skin exam: Present: warm, dry Course Vital Signs 02/14/23 02/14/23 02/14/23 00:41 01:45 03:27 Temperature 97.3 F L Pulse Rate 57 L 79 Respiratory 19 19 17 Rate Blood Pressure 126/58 134/84 O2 Sat by Pulse 97 93 L 95 Oximetry EKG Findings - EKG Comments: EKG Findings:: An EKG was obtained and was interpreted by myself showing a rate of 60, QR congregational of 153, QTC of 458. This EKG showed an atrial flutter with a left bundle branch block. The atrial flutter does appear new compared to the old EKG performed on 01/17/2022. The patient however denied any acute chest pain, shortness of breath or lightheadedness. Medical Decision Making - Medical Decision Making Was pt. sent in by a medical professional or institution (Dr., PA, DANCE PROFESSOR, urgent care, hospital, or long-term...) When possible be specific @ -Yes, patient sent in by nursing facility Did you speak to anyone other than the patient for history (EMS, parent, family, police, friend...)? What history was obtained from this source @ -No Did you review nursing and triage notes (agree or disagree)? Why? @ -I reviewed and agree with nursing and triage notes Were old charts reviewed (outside hosp., previous admission, EMS record, old EKG, old radiological studies, urgent care reports/EKG's, long-term records)? Report findings @ -No old charts were reviewed Differential Diagnosis (chest pain, altered mental status, abdominal pain women, abdominal pain men, vaginal bleeding, weakness, fever, dyspnea, syncope, headache, dizziness, GI bleed, back pain, seizure, CVA, palpatations, mental health)? @ -Breakthrough seizure, pneumonia, pneumothorax, electrolyte abnormality EKG interpreted by me (3pts min.). @ -As above X-rays interpreted by me (1pt min.). @ -Chest x-ray was obtained and was interpreted by myself showing no acute process. CT interpreted by me (1pt min.). @ -None done U/S interpreted by me (1pt. min.). @ -None done What testing was considered but not performed or refused? (CT, X-rays, U/S, labs)? Why? @ -None What meds were considered but not given or refused? Why? @ -None Did you discuss the management of the patient with other professionals (professionals i.e. DOREEN Nassar, DANCE PROFESSOR, lab, RT, psych nurse, social worker school, flask carrier, teacher, quarantine officer, nurse case manager)? Give summary @ -No Was smoking cessation discussed for >3mins.? @ -No Was critical care preformed (if so, how long)? @ -No Were there social determinants of health that impacted care today? How? (Ho melessness, low income, unemployed, alcoholism, drug addiction, transportation, low edu. Level, literacy, decrease access to med. care, [facility], rehab)? @ -No Was there de-escalation of care discussed even if they declined (Discuss DNR or withdrawal of care, Hospice)? DNR status @ -No What co-morbidities impacted this encounter? (DM, HTN, Smoking, COPD, CAD, Cancer, CVA, ARF, Chemo, Hep., AIDS, mental health diagnosis, sleep apnea, morbid obesity)? @ -History of epilepsy, diabetes, hypertension Was patient admitted / discharged? Hospital course, mention meds given and route, prescriptions, significant lab abnormalities, going to OR and other pertinent info. @ -The patient was initially seen and evaluated emergency department. Physical exam, the patient was resting in bed without any acute distress. Vital signs admission were stable. On evaluation, the patient denied any acute pain or complaints and the patient was sent in for possible seizure-like activity. Laboratory workup was obtained including a lactic acid which was negative indicating the patient likely does not have 3 seizures. Due to the patient's normal physical exam as well as normal workup, the patient was stable for discharge back to his nursing facility. The patient was agreeable to this plan and was discharged back in stable condition. Undiagnosed new problem with uncertain prognosis? @ -No Drug Therapy requiring intensive monitoring for toxicity (Heparin, Nitro, Insulin, Cardizem)? @ -No Were any procedures done? @ -No Diagnosis/symptom? @ -History of epilepsy, normal physical exam Acute, or Chronic, or Acute on Chronic? @ -Acute Uncomplicated (without systemic symptoms) or Complicated (systemic symptoms)? @ -Uncomplicated Side effects of treatment? @ -No Exacerbation, Progression, or Severe Exacerbation? @ -No Poses a threat to life or bodily function? How? (Chest pain, [place], [place], pneumonia, PE, COPD, DKA, ARF, appy, cholecystitis, CVA, Diverticulitis, Homicidal, Suicidal, threat to staff... and all critical care pts) @ -No - Lab Data Result diagrams: 02/14/23 01:17 02/14/23 01:17 Lab Results 02/14/23 02/14/23 02/14/23 Range/Units 01:17 01:17 02:10 WBC 9.8 (3.8-10.6) k/uL RBC 4.44 (4.30-5.90) m/uL Hgb 13.0 (13.0-17.5) gm/dL Hct 39.5 (39.0-53.0) % MCV 89.0 (80.0-100.0) fL MCH 29.2 (25.0-35.0) pg MCHC 32.8 (31.0-37.0) g/dL RDW 15.2 (11.5-15.5) % Plt Count 203 (150-450) k/uL MPV 9.8 Neutrophils % 68 % Lymphocytes % 18 % Monocytes % 8 % Eosinophils % 4 % Basophils % 0 % Neutrophils # 6.6 (1.3-7.7) k/uL Lymphocytes # 1.8 (1.0-4.8) k/uL Monocytes # 0.8 (0-1.0) k/uL Eosinophils # 0.4 (0-0.7) k/uL Basophils # 0.0 (0-0.2) k/uL Manual Slide Review Performed PT (9.0-12.0) sec INR (<1.2) APTT (22.0-30.0) sec Sodium 138 (137-145) mmol/L Potassium 4.3 (3.5-5.1) mmol/L Chloride 110 H (98-107) mmol/L Carbon Dioxide 15 L (22-30) mmol/L Anion Gap 13 mmol/L BUN 27 H (9-20) mg/dL Creatinine 1.22 (0.66-1.25) mg/dL Est GFR (CKD-EPI)AfAm 68 (>60 ml/min/1.73 sqM) Est GFR (CKD-EPI)NonAf 59 (>60 ml/min/1.73 sqM) Glucose 154 H (74-99) mg/dL Plasma Lactic Acid Roland 1.1 (0.7-2.0) mmol/L Calcium 8.6 (8.4-10.2) mg/dL Magnesium 1.9 (1.6-2.3) mg/dL Total Bilirubin 0.3 (0.2-1.3) mg/dL AST 24 (17-59) U/L ALT 22 (4-49) U/L Alkaline Phosphatase 92 (38-126) U/L Total Protein 7.4 (6.3-8.2) g/dL Albumin 3.6 (3.5-5.0) g/dL Lipase 143 (23-300) U/L 02/14/23 Range/Units 02:10 WBC (3.8-10.6) k/uL RBC (4.30-5.90) m/uL Hgb (13.0-17.5) gm/dL Hct (39.0-53.0) % MCV (80.0-100.0) fL MCH (25.0-35.0) pg MCHC (31.0-37.0) g/dL RDW (11.5-15.5) % Plt Count (150-450) k/uL MPV Neutrophils % % Lymphocytes % % Monocytes % % Eosinophils % % Basophils % % Neutrophils # (1.3-7.7) k/uL Lymphocytes # (1.0-4.8) k/uL Monocytes # (0-1.0) k/uL Eosinophils # (0-0.7) k/uL Basophils # (0-0.2) k/uL Manual Slide Review PT 10.1 (9.0-12.0) sec INR 0.9 (<1.2) APTT 23.9 (22.0-30.0) sec Sodium (137-145) mmol/L Potassium (3.5-5.1) mmol/L Chloride (98-107) mmol/L Carbon Dioxide (22-30) mmol/L Anion Gap mmol/L BUN (9-20) mg/dL Creatinine (0.66-1.25) mg/dL Est GFR (CKD-EPI)AfAm (>60 ml/min/1.73 sqM) Est GFR (CKD-EPI)NonAf (>60 ml/min/1.73 sqM) Glucose (74-99) mg/dL Plasma Lactic Acid Roland (0.7-2.0) mmol/L Calcium (8.4-10.2) mg/dL Magnesium (1.6-2.3) mg/dL Total Bilirubin (0.2-1.3) mg/dL AST (17-59) U/L ALT (4-49) U/L Alkaline Phosphatase (38-126) U/L Total Protein (6.3-8.2) g/dL Albumin (3.5-5.0) g/dL Lipase (23-300) U/L Disposition Clinical Impression: Normal physical exam Disposition: HOME SELF-CARE Condition: Stable Instructions (If sedation given, give patient instructions): Normal Exam (ED) Is patient prescribed a controlled substance at d/c from ED?: No Referrals: None,Stated [Primary Care Provider] - 1-2 days Time of Disposition: 03:30
[2023-02-14 02:34] LABS: INR 0.9 (<1.2); Partial Thromboplastin Time 23.9 sec (22.0-30.0); Prothrombin Time 10.1 sec (9.0-12.0)
[2023-02-14 02:58] LABS: Platelet Count 203 k/uL (150-450)
[2023-02-14 04:18] LABS: Appearance,Urine Turbid (Clear); Bacteria,Urine Moderate /hpf; Bilirubin,Urine Negative (Negative); Blood,Urine Moderate (Negative); Color,Urine Light Yellow; Glucose,Urine (UA) Negative (Negative); Ketones,Urine Negative (Negative); Leukocyte Esterase,Urine Large (Negative); Mucus,Urine Rare /hpf; Nitrite,Urine Negative (Negative); Protein,Urine 1+ (Negative); RBC,Urine 90 /hpf (0-5); Specific Gravity,Urine 1.015 (1.001-1.035); Urobilinogen,Urine <2.0 mg/dL (<2.0); WBC,Urine >182 /hpf (0-5)
[2023-02-14 04:42] VITALS: BP 102/61
--- NOTE | 2023-02-14 05:39 | XR ---
EXAMINATION TYPE: XR chest 2V DATE OF EXAM: 02/14/2023 2:07 AM COMPARISON: Chest radiographs from 01/17/2022 TECHNIQUE: XR chest 2V Frontal and lateral views of the chest. CLINICAL INDICATION:Male, 72 years old with history of Seizure; FINDINGS: Lungs/Pleura: There is no evidence of pleural effusion, focal consolidation, or pneumothorax. Pulmonary vascularity: Unremarkable. Heart/mediastinum: Cardiomediastinal silhouette is enlarged and stable. Two lead cardiac conduction d evice overlying the left hemithorax with lead tips projecting over the right ventricle and right atri um. Musculoskeletal: Multiple level degenerative disc disease changes seen throughout the spine. Midline sternotomy wires are noted and stable. Cervical fusion hardware. Right AC joint arthropathy. IMPRESSION: Chronic changes without evidence for acute process.
[2023-02-14 06:15] VITALS: RESP 17
[2023-02-14 06:50] VITALS: PULSE 54
== END 2023-02-14 07:41 | disposition home or self-care (01) ==
LOC: EC 00:36
DX: Z00.00 Encounter for general adult medical examination without abnormal findings (principal); I48.92 Unspecified atrial flutter; I44.7 Left bundle-branch block, unspecified; I10 Essential (primary) hypertension; E11.9 Type 2 diabetes mellitus without complications; E66.9 Obesity, unspecified; Z79.01 Long term (current) use of anticoagulants; Z79.84 Long term (current) use of oral hypoglycemic drugs; Z79.899 Other long term (current) drug therapy; Z68.33 Body mass index [BMI] 33.0-33.9, adult; Z87.891 Personal history of nicotine dependence; Z86.69 Personal history of other diseases of the nervous system and sense organs
CPT/HCPCS: 36415; 71046; 80053; 81001; 83605; 83690; 83735; 85025; 85610; 85730; 93005; 96360; 99285